=== PATIENT | male | born 1965 | race Caucasian/White ===

== ENCOUNTER 2018-03-30 17:27 | Observation (INO) | payer OTHER ==
[2018-03-30] MEDS ORDERED: ASPIRIN 81 MG CHEWABLE TABLET ONE (18:57)
[2018-03-30] MEDS ORDERED: METOPROLOL TAR 50 MG TAB ONE (18:57)
[2018-03-30] MEDS ORDERED: FAMOTIDINE 20 MG/2 ML VIAL IV ONE (18:58)
[2018-03-30] MEDS ORDERED: ENOXAPARIN 80 MG/0.8 ML SQ ONE (18:58)
--- NOTE | 2018-03-30 18:58 | ER ---
Nurse's Notes [facility] Name: Jacob Liao Age: 52 yrs Sex: Male : 1965 Arrival Date: 03/30/2018 Time: 17:29 Bed 6 Private MD: out of town, doctor Diagnosis: Chest pain, unspecified;Essential (primary) hypertension Presentation: 03/30 17:50 Presenting complaint: Patient states: mid-sternal chest pain radiating to left arm that aa5 began today around 1400. Pt states "I've also been having cramps to my left calf since December". Transition of care: patient was not received from another setting of care. Onset of symptoms was March 30, 2018. Risk Assessment: Do you want to hurt yourself or someone else? Patient reports no desire to harm self or others. Initial Sepsis Screen: Does the patient meet any 2 criteria? No. Patient's initial sepsis screen is negative. Does the patient have a suspected source of infection? No. Patient's initial sepsis screen is negative. Care prior to arrival: None. 17:50 Method Of Arrival: Ambulatory aa5 17:50 Acuity: JOHN 3 aa5 Triage Assessment: 19:02 General: Appears in no apparent distress. uncomfortable, Behavior is calm, cooperative, hj appropriate for age. Pain: Complains of pain in chest Pain radiates to left arm. Cardiovascular: Capillary refill < 3 seconds Patient's skin is warm and dry. Historical: - Allergies: 17:51 No Known Allergies; aa5 - Home Meds: 17:51 None [Active]; aa5 - PMHx: 17:51 Hyperlipidemia; aa5 17:51 Anxiety; aa5 - PSHx: 17:51 Cholecystectomy; aa5 - Immunization history:: Adult Immunizations up to date. - Social history:: Smoking status: Patient/guardian denies using tobacco. - Ebola Screening: : No symptoms or risks identified at this time. - Family history:: not pertinent. Screenin:02 Abuse screen: Denies threats or abuse. Denies injuries from another. Nutritional hj screening: No deficits noted. Tuberculosis screening: No symptoms or risk factors identified. Fall Risk None identified. Assessment: 19:00 General: Appears in no apparent distress. uncomfortable, Behavior is calm, cooperative, hj appropriate for age. Pain: Complains of pain in chest Pain radiates to left arm. Neuro: Level of Consciousness is awake, alert, obeys commands, Oriented to person, place, time, situation, Appropriate for age. Cardiovascular: Capillary refill < 3 seconds Patient's skin is warm and dry. Respiratory: Airway is patent Respiratory effort is even, unlabored, Respiratory pattern is regular, symmetrical. GI: No signs and/or symptoms were reported involving the gastrointestinal system. : No signs and/or symptoms were reported regarding the genitourinary system. EENT: No signs and/or symptoms were reported regarding the EENT system. Derm: No signs and/or symptoms reported regarding the dermatologic system. Musculoskeletal: No signs and/or symptoms reported regarding the musculoskeletal system. 19:02 Pain: Pain began 4 hours ago. hj 19:05 Reassessment: Patient appears in no apparent distress at this time. Patient and/or cc3 family updated on plan of care and expected duration. Pain level reassessed. Patient is alert, oriented x 3, equal unlabored respirations, skin warm/dry/pink. Received this male patient as a case of chest pain; with IV cannula gauge 20 at the right ACV saline locked. 20:06 Reassessment: Patient appears in no apparent distress at this time. Patient and/or cc3 family updated on plan of care and expected duration. Pain level reassessed. Patient is alert, oriented x 3, equal unlabored respirations, skin warm/dry/pink. 21:50 Reassessment: Patient appears in no apparent distress at this time. Patient and/or cc3 family updated on plan of care and expected duration. Pain level reassessed. Patient is alert, oriented x 3, equal unlabored respirations, skin warm/dry/pink. Room available in 215, report handed over to [place] Ernestine Andrade. Patient left ER stable by wheelchair escorted by DIANA Patricia. Vital Signs: 17:52 BP 165 / 100; Pulse 86; Resp 16 S; Temp 99.6(TE); Pulse Ox 99% on R/A; Weight 81.65 kg aa5 (R); Height 5 ft. 11 in. (180.34 cm) (R); Pain 3/10; 19:01 BP 135 / 88; Pulse 68; Resp 18; Pulse Ox 100% on R/A; hj 20:05 BP 146 / 89; Pulse 60; Resp 14 S; Temp 98.9(O); Pulse Ox 98% on R/A; cc3 21:30 BP 137 / 91; Pulse 56; Resp 18 S; Pulse Ox 98% on R/A; cc3 17:52 Body Mass Index 25.10 (81.65 kg, 180.34 cm) aa5 ED Course: 17:29 Patient arrived in ED. mr 17:30 out of town, doctor is Private Physician. mr 17:51 Triage completed. aa5 17:52 Arm band placed on. aa5 18:01 Todd White, RN is Primary Nurse. hj 18:07 EKG done, by technical research scientist. reviewed by Kevin William MD. 3 18:13 Kevin William MD is Attending Physician. 18:30 Inserted saline lock: 22 gauge in right antecubital area, using aseptic technique. hj Blood collected. 18:34 Attending Physician role handed off by Kevin William MD [facility] 18:34 Eliel Monroy MD is Attending Physician. carmelo 18:45 Initial lab(s) drawn, by ky, sent to lab. First set of blood cultures drawn by me, Second set of blood cultures drawn by ky. 18:57 Lincoln Peralta MD is Hospitalizing Provider. carmelo 19:02 Patient has correct armband on for positive identification. Placed in gown. Bed in low hj position. Call light in reach. Side rails up X 1. Adult w/ patient. teletypesetter monitor on. Pulse ox on. NIBP on. 19:03 Patient maintains SpO2 saturation greater than 95% on room air. hj 19:04 XRAY Chest (1 view) In Process Unspecified. EDMS 19:14 US Extremity Venous Unilateral Ltd In Process Unspecified. EDMS 21:55 No provider procedures requiring assistance completed. Patient admitted, IV remains in cc3 place. Administered Medications: 08:36 Drug: Aspirin Chewable Tablet 324 mg Route: PO; hj 19:05 Follow up: Response: No adverse reaction hj 18:36 Drug: Lopressor (metoprolol TARTRATE) 50 mg Route: PO; hj 19:04 Follow up: Response: No adverse reaction; Blood pressure is lowered hj 18:36 Drug: Lovenox 80 mg Route: Sub-Q; Site: abdomen; hj 19:04 Follow up: Response: No adverse reaction hj 18:36 Drug: Pepcid 20 mg Route: IVP; Site: right antecubital; hj 19:04 Follow up: Response: No adverse reaction Outcome: 18:58 Decision to Hospitalize by Provider. carmelo 21:55 Admitted to Med/surg accompanied by tech, via wheelchair, room 215, with chart, Report cc3 called to SADIQ Andrade 21:55 Condition: stable 21:55 Instructed on the need for admit. 22:00 Patient left the ED. cc3 Signatures: Dispatcher [employer] EDEliel Roche MD MD cha Rivera, Mary mr RicoLeila, RN RN aa5 Todd White RN RN hj Starr, Gregory, MD MD gs Montes, Shakira [facility] Justyna Reid cc3
--- NOTE | 2018-03-30 18:59 | EDPHYS ---
Physician Documentation [facility] Name: Jacob Liao Age: 52 yrs Sex: Male : 1965 Arrival Date: 03/30/2018 Time: 17:29 Bed 6 Private MD: out of town, doctor ED Physician Eliel Monroy HPI: 03/30 18:23 This 52 yrs old Male presents to ER via Ambulatory with complaints of Chest gs Pain, Arm Pain. 18:23 The patient or guardian reports chest pain that is located primarily in the substernal gs area. Onset: suddenly, at 14:00. The pain radiates to the left arm. Associated signs and symptoms: Pertinent negatives: diaphoresis, shortness of breath. The chest pain is described as a heaviness. Duration: The patient or guardian reports multiple episodes, that are intermittent, that wax and wane, with no pattern, the episodes last approximately 3 minute(s). Severity of pain: At its worst the pain was moderate in the emergency department the pain has resolved. The patient has experienced similar episodes in the past, a few times. says recent nuc stress echo negative. 18:55 Duration:. carmelo Historical: - Allergies: 17:51 No Known Allergies; aa5 - Home Meds: 17:51 None [Active]; aa5 - PMHx: 17:51 Hyperlipidemia; aa5 17:51 Anxiety; aa5 - PSHx: 17:51 Cholecystectomy; aa5 - Immunization history:: Adult Immunizations up to date. - Social history:: Smoking status: Patient/guardian denies using tobacco. - Ebola Screening: : No symptoms or risks identified at this time. - Family history:: not pertinent. ROS: 18:23 All other systems are negative. gs Exam: 18:23 Head/Face: Normocephalic, atraumatic. Eyes: Pupils equal round and reactive to light, gs extra-ocular motions intact. Lids and lashes normal. Conjunctiva and sclera are non-icteric and not injected. Cornea within normal limits. Periorbital areas with no swelling, redness, or edema. ENT: Nares patent. No nasal discharge, no septal abnormalities noted. Tympanic membranes are normal and external auditory canals are clear. Oropharynx with no redness, swelling, or masses, exudates, or evidence of obstruction, uvula midline. Mucous membranes moist. Neck: Trachea midline, no thyromegaly or masses palpated, and no cervical lymphadenopathy. Supple, full range of motion without nuchal rigidity, or vertebral point tenderness. No Meningismus. Chest/axilla: Normal chest wall appearance and motion. Nontender with no deformity. No lesions are appreciated. Respiratory: Lungs have equal breath sounds bilaterally, clear to auscultation and percussion. No rales, rhonchi or wheezes noted. No increased work of breathing, no retractions or nasal flaring. Abdomen/GI: Soft, non-tender, with normal bowel sounds. No distension or tympany. No guarding or rebound. No evidence of tenderness throughout. Back: No spinal tenderness. No costovertebral tenderness. Full range of motion. Skin: Warm, dry with normal turgor. Normal color with no rashes, no lesions, and no evidence of cellulitis. Neuro: Awake and alert, GCS 15, oriented to person, place, time, and situation. Cranial nerves II-XII grossly intact. Motor strength 5/5 in all extremities. Sensory grossly intact. Cerebellar exam normal. Normal gait. 18:23 Constitutional: The patient appears alert, awake. 18:23 Cardiovascular: Rate: normal, Rhythm: regular, Pulses: no pulse deficits are appreciated, Heart sounds: normal, Edema: is not appreciated. 18:23 ECG was reviewed by the Attending Physician. Vital Signs: 17:52 BP 165 / 100; Pulse 86; Resp 16 S; Temp 99.6(TE); Pulse Ox 99% on R/A; Weight 81.65 kg aa5 (R); Height 5 ft. 11 in. (180.34 cm) (R); Pain 3/10; 19:01 BP 135 / 88; Pulse 68; Resp 18; Pulse Ox 100% on R/A; hj 20:05 BP 146 / 89; Pulse 60; Resp 14 S; Temp 98.9(O); Pulse Ox 98% on R/A; cc3 21:30 BP 137 / 91; Pulse 56; Resp 18 S; Pulse Ox 98% on R/A; cc3 17:52 Body Mass Index 25.10 (81.65 kg, 180.34 cm) aa5 MDM: 18:18 Patient medically screened. 18:23 Differential diagnosis: acute myocardial infarction, chest wall pain, dvt. Data gs reviewed: vital signs, nurses notes. 18:34 Patient medically screened. [facility] 03/30 18:19 Order name: Basic Metabolic Panel; Complete Time: 19:21 03/30 18:19 Order name: CBC with Diff; Complete Time: 19:21 03/30 18:19 Order name: LFT's; Complete Time: 19:21 03/30 18:19 Order name: Magnesium; Complete Time: 19:21 03/30 18:19 Order name: NT PRO-BNP; Complete Time: 19:21 03/30 18:19 Order name: PT-INR; Complete Time: 19:21 03/30 18:19 Order name: Troponin (emerg Dept Use Only); Complete Time: 19:21 03/30 18:19 Order name: XRAY Chest (1 view); Complete Time: 21:18 03/30 18:20 Order name: US Extremity Venous Unilateral Ltd; Complete Time: 21:18 03/30 18:36 Order name: Blood Culture Adult (2) [facility] 03/30 18:10 Order name: EKG Electrocardiogram; Complete Time: 18:36 EDMS 03/30 18:19 Order name: Cardiac monitoring; Complete Time: 18:35 03/30 18:19 Order name: IV Saline Lock; Complete Time: 18:35 03/30 18:19 Order name: Labs collected and sent; Complete Time: 18:36 03/30 18:19 Order name: O2 Per Protocol; Complete Time: 18:36 03/30 18:19 Order name: O2 Sat Monitoring; Complete Time: 18:36 03/30 19:08 Order name: CONS Physician Consult EDMS EC:23 Rate is 75 beats/min. Rhythm is regular. OH interval is normal. T waves are Normal. No gs ST changes noted. Clinical impression: Normal ECG. Interpreted by me. Administered Medications: 08:36 Drug: Aspirin Chewable Tablet 324 mg Route: PO; 19:05 Follow up: Response: No adverse reaction hj 18:36 Drug: Lopressor (metoprolol TARTRATE) 50 mg Route: PO; 19:04 Follow up: Response: No adverse reaction; Blood pressure is lowered hj 18:36 Drug: Lovenox 80 mg Route: Sub-Q; Site: abdomen; hj 19:04 Follow up: Response: No adverse reaction hj 18:36 Drug: Pepcid 20 mg Route: IVP; Site: right antecubital; 19:04 Follow up: Response: No adverse reaction Disposition: 03/30/18 18:58 Hospitalization ordered by Lincoln Peralta for Observation. Preliminary diagnosis are Chest pain, unspecified, Essential (primary) hypertension. - Bed requested for Telemetry/MedSurg (observation). - Status is Observation. cc3 - Condition is Stable. - Problem is new. - Symptoms have improved. UTI on Admission? No Signatures: Dispatcher [employer] EDMS Esha Black RN RN kl Anderson, Corey, MD MD cha Calderon, Audri RN RN aa5 Todd White RN RN hj Starr, Gregory, MD MD gs Cordel, Charlene cc3 Corrections: (The following items were deleted from the chart) 20:31 18:58 Hospitalization Ordered by Lincoln Peralta MD for Observation. Preliminary kl diagnosis is Chest pain, unspecified; Essential (primary) hypertension. Bed requested for Telemetry/MedSurg (observation). Status is Observation. Condition is Stable. Problem is new. Symptoms have improved. UTI on Admission? No. carmelo 22:00 20:31 03/30/2018 18:58 Hospitalization Ordered by Lincoln Peralta MD for Observation. cc3 Preliminary diagnosis is Chest pain, unspecified; Essential (primary) hypertension. Bed requested for Telemetry/MedSurg (observation). Status is Observation. Condition is Stable. Problem is new. Symptoms have improved. UTI on Admission? No. kl
[2018-03-30 19:04] LABS: Absolute Lymphocytes (CBC) 1.6 K/uL (0.7-4.9); Absolute Monocytes 0.4 K/uL (0.1-1.3); Absolute Neutrophil 4.2 K/uL (1.8-8.0); Basophils % 0.4 % (0-1.3); Eosinophils % 0.7 % (0-4.4); Hematocrit 42.3 % (39.6-49.0); Lymphocytes % 25.8 % (15.3-44.8); MCV 96.9 fL (80-100); MPV 7.3 fL (7.6-11.3); Monocytes % 5.7 % (3.3-12.3); RBC Red Blood Cell Count 4.36 M/uL (4.33-5.43)
[2018-03-30 19:08] LABS: Protime INR 1.04
[2018-03-30 19:19] LABS: ALT/SGPT 31 U/L (12-78); AST/SGOT 19 U/L (15-37); Alkaline Phosphatase 56 U/L (45-117); BUN Blood Urea Nitrogen 13 mg/dL (7-18); Bicarbonate 27 mmol/L (21-32); Bilirubin Direct 0.2 mg/dL (0-0.2); Bilirubin Total 0.8 mg/dL (0.2-1.0); Glucose Level 102 mg/dL (74-106); Magnesium 2.1 mg/dL (1.8-2.4); NT PRO-BNP 27 pg/mL (<125); Potassium 3.7 mmol/L (3.5-5.1); Protein, Total 7.5 g/dL (6.4-8.2); Sodium Level 141 mmol/L (136-145); Troponin (Emerg Dept Use Only) < 0.02 ng/mL (0.0-0.045)
--- NOTE | 2018-03-30 19:21 | RAD REPORT ---
EXAM DESCRIPTION: US - Extremity Venous Uni Ltd - 03/30/2018 7:14 pm CLINICAL HISTORY: Leg pain and swelling COMPARISON: None. TECHNIQUE: Real-time sonographic evaluation of the left lower extremity deep venous system was perfo rmed. FINDINGS: Normal compressibility, flow augmentation, phasic flow and spontaneous flow are identified in the left lower extremity common femoral, superficial femoral, popliteal and posterior tibial vein s. No intraluminal filling defects seen. IMPRESSION: No DVT in the left lower extremity.
--- NOTE | 2018-03-30 20:19 | RAD REPORT ---
EXAM DESCRIPTION: RAD - Chest Single View - 03/30/2018 7:04 pm CLINICAL HISTORY: CHEST PAIN COMPARISON: CR; Chest 12/26/2016 TECHNIQUE: AP portable chest image was obtained 1901 hours . FINDINGS: Lungs are clear. Heart and vasculature are normal. No measurable pleural effusion and no p neumothorax. No acute bony abnormality seen. No acute aortic findings suspected. IMPRESSION: No acute cardiopulmonary process. No significant change from comparison.
[2018-03-30] MEDS ORDERED: ACETAMINOPHEN 500 MG TAB PO PRN (20:55)
[2018-03-30] MEDS ORDERED: ALPRAZOLAM 0.25 MG TABLET PO PRN (20:55)
[2018-03-30] MEDS ORDERED: MORPHINE 4 MG/ML SYR IV PRN (20:55)
[2018-03-30 22:03] VITALS: BMI 25.2
[2018-03-30] MEDS: METOPROLOL TAR 50 MG TAB PO SCH (22:50)
[2018-03-31 05:50] LABS: Absolute Lymphocytes (CBC) 3.2 K/uL (0.7-4.9); Absolute Monocytes 0.5 K/uL (0.1-1.3); Absolute Neutrophil 2.6 K/uL (1.8-8.0); Basophils % 0.4 % (0-1.3); Hematocrit 41.2 % (39.6-49.0); Lymphocytes % 49.2 % (15.3-44.8); MCV 97.5 fL (80-100); MPV 7.5 fL (7.6-11.3); Monocytes % 8.1 % (3.3-12.3); RBC Red Blood Cell Count 4.23 M/uL (4.33-5.43)
[2018-03-31 05:56] LABS: BUN Blood Urea Nitrogen 14 mg/dL (7-18); Bicarbonate 30 mmol/L (21-32); Glucose Level 84 mg/dL (74-106); HDL Cholesterol 56 mg/dL (40-60); LDL Cholesterol, Calculated 147 (<130); Potassium 4.1 mmol/L (3.5-5.1); Sodium Level 141 mmol/L (136-145); Troponin I < 0.02 ng/mL (0.0-0.045)
[2018-03-31 06:07] LABS: Urine Appearance CLEAR; Urine Bilirubin NEGATIVE (NEG); Urine Blood NEGATIVE (NEG); Urine Color YELLOW; Urine Glucose NEGATIVE (NEG); Urine Protein NEGATIVE (NEG); Urine Urobilinogen 0.2 mg/dL (0.2-1.0)
[2018-03-31 06:12] LABS: Urine Microscopic Reflex NO UMIC
--- NOTE | 2018-03-31 06:23 | P.HP ---
Certification for Inpatient Patient admitted to: Observation With expected LOS: <2 Midnights Patient will require the following post-hospital care: None Practitioner: I am a practitioner with admitting privileges, knowledge of patient current condition, hospital course, and medical plan of care. Services: Services provided to patient in accordance with Admission requirements found in Title 42 Section 412.3 of the Code of Federal Regulations Patient History Date of Service: 03/30/18 Reason for admission: CP r/o ACS vs. Anxiety disorder History of Present Illness: Patient is a 52-year-old gentleman who came into the hospital with chest discomfort. Patient has a history of dyslipidemia as well as a strong family history. He has had significant workup about a year and a half ago. At that time his workup was completely unremarkable. He was diagnose with anxiety disorder. He has been following up with his family doctor in [place] & he was diagnosed with Latonya's thyroiditis. Patient does significant research in to his medical conditions and also feels he has other issues that may be contributing to his medical diseases. He has had multiple testing performed including substantial mineral and nutritional labs, as well as multiple inflammatory markers performed. He also is not certain if he wants to get any kind of nuclear medicine testing as he feels like there are other testing that are better for diagnosing his questionable cardiac disease. He follows up with her flatwork folder, Dr. Montelongo. Will Consult Cardiology and will also get further testing with an echocardiogram for now. Await Cardiology recommendations prior to any further diagnostic testing. Allergies No Known Allergies Allergy (Verified 03/30/18 22:42) Home Medications: NK [No Home Meds] 03/30/18 - Past Medical/Surgical History Has patient received pneumonia vaccine in the past: No Diabetic: No -: Hyperliperdema -: Overweight -: Allergic rhinitis -: Anxiety disorder -: Latonya's thyroiditis -: Low testosterone level -: Cholecystectomy Psychosocial/ Personal History: . - Family History Father Family History: Reviewed- Non-Contributory - Social History Smoking Status: Never smoker Alcohol use: No CD- Drugs: No Caffeine use: Yes Place of Residence: Home Review of Systems 10-point ROS is otherwise unremarkable Physical Examination - Vital Signs Temperature: 97.8 F Blood Pressure: 127/82 Pulse: 56 Respirations: 18 Pulse Ox (%): 98 - Physical Exam General: Alert, In no apparent distress, Oriented x3 HEENT: Atraumatic, PERRLA, Mucous membr. moist/pink, EOMI, Sclerae nonicteric Neck: Supple, 2+ carotid pulse no bruit, No LAD, Without JVD or thyroid abnormality Respiratory: Clear to auscultation bilaterally, Normal air movement Cardiovascular: Regular rate/rhythm, Normal S1 S2 Gastrointestinal: Normal bowel sounds, Soft and benign, Non-distended Musculoskeletal: No clubbing, No swelling, No tenderness Integumentary: No rashes Neurological: Normal speech, Normal strength at 5/5 x4 extr, Cranial nerves 3- 12 intact, Normal affect Lymphatics: No axilla or inguinal lymphadenopathy - Studies Laboratory Data (last 24 hrs) 03/30/18 18:45: PT 12.3, INR 1.04 03/30/18 18:45: WBC 6.3, Hgb 14.8, Hct 42.3, Plt Count 176 03/30/18 18:45: Sodium 141, Potassium 3.7, BUN 13, Creatinine 1.20, Glucose 102 , Magnesium 2.1, Total Bilirubin 0.8, AST 19, ALT 31, Alkaline Phosphatase 56 Assessment & Plan - Problems (Diagnosis) (1) Chest pain, rule out acute myocardial infarction Current Visit: Yes Status: Acute (2) Anxiety disorder Current Visit: Yes Status: Acute (3) Dyslipidemia Current Visit: Yes Status: Acute (4) Latonya's thyroiditis Current Visit: Yes Status: Acute - Plan 1. Serial troponins and EKG 2. Cardiology consultation 3. Echocardiogram pending 4. Anti-platelet therapy, anti coagulation, beta-kanchan, statin, and O2 as needed 5. IV morphine for pain 6. Anxiolytic Discharge Plan: Home Plan to discharge in: 24 Hours - Advance Directives Does patient have a Living Will: Yes Does patient have a Durable POA for Healthcare: Yes - Code Status/Comfort Care Code Status Assessed: Yes Code Status: Full Code Critical Care: No Time Spent Managing PTS Care (In Minutes): 50
--- NOTE | 2018-03-31 07:34 | EKG ---
Test Date: 2018-03-30 Test Time: 17:59:35 Farm Management Agent: SERAFIN MEASUREMENT RESULTS: Intervals: Rate: 75 DE: 124 QRSD: 94 QT: 380 QTc: 424 [place]: P: 57 DE: 124 QRS: 64 T: 47 INTERPRETIVE STATEMENTS: Normal sinus rhythm Normal ECG Compared to ECG 12/26/2016 22:44:19 Sinus bradycardia no longer present Electronically Signed On 03-31-18 07:33:59 CDT by Eulalio Montelongo
[2018-03-31] MEDS ORDERED: PNEUMOCOCCAL VACCINE 0.5 ML IMVAC ONE (08:00)
[2018-03-31] MEDS ORDERED: ASPIRIN EC 81 MG TAB PO SCH (09:00)
[2018-03-31] MEDS ORDERED: LISINOPRIL 10 MG TAB PO SCH (09:00)
[2018-03-31] MEDS: METOPROLOL TAR 50 MG TAB PO SCH (09:00)
[2018-03-31] MEDS ORDERED: ENOXAPARIN 40 MG/0.4 ML SQ SCH (09:00)
[2018-03-31] MEDS ORDERED: HEPA 1000U/500MLS 2,000 UNIT/1,000 ML BAG IV ONE (09:24)
[2018-03-31] MEDS ORDERED: MIDAZOLAM HCL 2 MG/2 ML INJ ONE (09:24)
[2018-03-31] MEDS ORDERED: FENTANYL CITR 100 MCG/2 ML ONE (09:24)
[2018-03-31] MEDS ORDERED: NITROGLYCERIN/D5W 25 MG/250 ML BTL IV ONE (09:25)
[2018-03-31] MEDS ORDERED: NA CHLORIDE 0.9% 0 ML ONE (09:25)
[2018-03-31] MEDS ORDERED: NITROGLYCERIN 100 MCG/ML SYR (for cath lab use only) IV ONE (09:25)
[2018-03-31] MEDS ORDERED: NICARDIPINE HCL 25 MG/10 ML IV ONE (09:25)
[2018-03-31] MEDS ORDERED: LIDOCAINE 1% MPF 30 ML VIAL ONE (09:25)
[2018-03-31] MEDS ORDERED: ATROPINE SULF 1 MG/10 ML SYR IV ONE (09:25)
[2018-03-31] MEDS ORDERED: HEPARIN 5000 UNIT/ML 1 ML VIAL ONE (09:26)
--- NOTE | 2018-03-31 09:37 | P.DS ---
Admission Date: 03/30/18 Discharge Date: 03/31/18 Primary Care Provider: Dr. Flaherty([place], [place]); Cardiology-Dr. Montelongo Disposition: ROUTINE DISCHARGE Discharge Condition: GOOD Reason for Admission: CP r/o ACS vs. Anxiety disorder Consultations: Cardiology-Dr. Montelongo Procedures: Venous Doppler lower extremity: No DVT identified. Chest X-ray: Unremarkable. 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 Patient was admitted for further evaluation. Hospital Course: Patient presented with chest pain. Patient had atypical presentation. Patient also found to have elevated blood pressure. Patient was admitted for further evaluation and treatment. Cardiology was consulted. Patient declined having a nuclear stress test. Cardiology recommended that the patient be discharge and set up for heart catheterization as an outpatient. Patient has agreed. BP stable at this time. Recommend to continue with aspirin 81 mg daily. Recommendation follow up with cardiology within 1-2 weeks to set up heart catheterization. Patient was found to have elevated blood pressure. He reports that he has white coat syndrome. Recommendation is to monitor blood pressures closely. If his blood pressure remains above 150/90 consistently then the patient will likely require medication. This will need to be further addressed by his PCP and Cardiology. Patient has refused medication for blood pressure at this time. Patient has hyperlipidemia. LDL 147. Recommendation was to start medication for cholesterol. Patient declined starting any medication. He reports that he will continue with diet and lifestyle modification. Recommendation to recheck lipid panel in 4-6 weeks to further address. Patient has anxiety disorder. Patient will follow up with his PCP to further address and evaluate. Previous x-rays reviewed from 2014. Patient has moderate spondylosis of the L4- L5 region. Patient has been having some back pain. He has seen a chiropractor for this issue. Recommendation to consider MRI of the lumbar spine to further evaluate and address. This can be done with the help of his PCP. Previous CT scan done 2015 showed fatty liver. Education on fatty liver will be provided. This can be further addressed by his PCP. Patient with history of Latonya thyroiditis. Previous thyroid ultrasound done December 2017 showed a small vague right thyroid nodule. No calcifications were identified. Recommendations for the patient to follow up with his PCP to further monitor and address. Vital Signs/Physical Exam: Temp Pulse Resp BP Pulse Ox 98.8 F 54 16 131/75 97 03/31/18 08:00 03/31/18 08:00 03/31/18 08:00 03/31/18 08:00 03/31/18 08:00 General: Alert, In no apparent distress, Oriented x3, Cooperative HEENT: Atraumatic, Mucous membr. moist/pink Neck: Supple, No Thyromegaly Respiratory: Clear to auscultation bilaterally, Normal air movement Cardiovascular: Normal pulses, Regular rate/rhythm Gastrointestinal: Normal bowel sounds, Soft and benign, Non-distended, No tenderness, No masses, No rebound, No guarding Musculoskeletal: No erythema, No tenderness, No warmth Integumentary: No tenderness/swelling, No erythema, No warmth, No cyanosis Neurological: Normal speech, Normal strength at 5/5 x4 extr, Normal tone, Normal affect Laboratory Data at Discharge: WBC 6.5 K/uL (4.3-10.9) 03/31/18 04:34 Hgb 14.4 g/dL (13.6-17.9) 03/31/18 04:34 Hct 41.2 % (39.6-49.0) 03/31/18 04:34 Plt Count 173 K/uL (152-406) 03/31/18 04:34 PT 12.3 SECONDS (9.5-12.5) 03/30/18 18:45 INR 1.04 03/30/18 18:45 Sodium 141 mmol/L (136-145) 03/31/18 04:34 Potassium 4.1 mmol/L (3.5-5.1) 03/31/18 04:34 BUN 14 mg/dL (7-18) 03/31/18 04:34 Creatinine 1.10 mg/dL (0.55-1.3) 03/31/18 04:34 Glucose 84 mg/dL (74-106) 03/31/18 04:34 Magnesium 2.1 mg/dL (1.8-2.4) 03/30/18 18:45 Total Bilirubin 0.8 mg/dL (0.2-1.0) 03/30/18 18:45 AST 19 U/L (15-37) 03/30/18 18:45 ALT 31 U/L (12-78) 03/30/18 18:45 Alkaline Phosphatase 56 U/L (45-117) 03/30/18 18:45 Troponin I < 0.02 ng/mL (0.0-0.045) 03/31/18 04:34 Triglycerides Cancelled 03/31/18 06:00 Cholesterol Cancelled 03/31/18 06:00 HDL Cholesterol Cancelled 03/31/18 06:00 Cholesterol/HDL Ratio Cancelled 03/31/18 06:00 Home Medications: Aspirin [Aspirin EC 81 MG] 81 mg PO DAILY #90 tablet. 03/31/18 New Medications: Aspirin [Aspirin EC 81 MG] 81 mg PO DAILY #90 tablet. Patient Discharge Instructions: 1. Patient will need a follow up his PCP in 1 week to follow up this hospitalization. 2. Patient presented with chest pain. Patient had atypical presentation. Patient also found to have elevated blood pressure. Patient was admitted for further evaluation and treatment. Cardiology was consulted. Patient declined having a nuclear stress test. Cardiology recommended that the patient be discharge and set up for heart catheterization as an outpatient. Patient has agreed. BP stable at this time. Recommend to continue with aspirin 81 mg daily. Recommendation follow up with cardiology within 1-2 weeks to set up heart catheterization. 3. Patient was found to have elevated blood pressure. He reports that he has white coat syndrome. Recommendation is to monitor blood pressures closely. If his blood pressure remains above 150/90 consistently then the patient will likely require medication. This will need to be further addressed by his PCP and Cardiology. Patient has refused medication for blood pressure at this time. 4. Patient has hyperlipidemia. LDL 147. Recommendation was to start medication for cholesterol. Patient declined starting any medication. He reports that he will continue with diet and lifestyle modification. Recommendation to recheck lipid panel in 4-6 weeks to further address. 5. Patient has anxiety disorder. Patient will follow up with his PCP to further address and evaluate. 6. Previous x-rays reviewed from 2014. Patient has moderate spondylosis of the L4- L5 region. Patient has been having some back pain. He has seen a chiropractor for this issue. Recommendation to consider MRI of the lumbar spine to further evaluate and address. This can be done with the help of his PCP. 7. Previous CT scan done 2015 showed fatty liver. Education on fatty liver will be provided. This can be further addressed by his PCP. 8. Patient with history of Latonya thyroiditis. Previous thyroid ultrasound done December 2017 showed a small vague right thyroid nodule. No calcifications were identified. Recommendations for the patient to follow up with his PCP to further monitor and address. Diet: AHA Activity: Ad ena Time spent managing pt's care (in minutes): 55
[2018-03-31] MEDS ORDERED: NA CHLORIDE 0.9% 500 ML ONE (10:26)
--- NOTE | 2018-03-31 12:02 | OP ---
Surgeon: Eulalio Montelongo MD Procedures: Left heart catheterization, coronary. Left ventricular angiography. Findings: The patient has normal coronary arteries. Normal pressures. Normal left ventricular ejec tion fraction, and he is believed to have chest pain from musculoskeletal causes, noncardiac. Procedure In Detail: The patient gave us informed consent. He was brought to the cardiac labeling strategist i n a fasting state sedated with Versed and fentanyl, titrated to an adequate level of sedation. He wa s then prepared and draped in the usual sterile fashion. Right radial approach was used. We anesthe tized the skin over the right radial artery with 1 cc of 1% lidocaine. We entered the artery using a 21-gauge needle, cannulated the artery with a 0.021 inch diameter guidewire then used that to insert a 6-[employer] radial sheath. The sheath was flushed. A radial cocktail was given. We advanced a TIG catheter to the ascending aorta using fluoroscopy and a Glidewire with a short radius J-tip. We then used a TIG catheter to angiogram left ventricle, left coronary, right coronary. At the end o f the procedure, the wire and catheter were withdrawn. The catheter was drawn over a wire. The watkins th was removed, and the arteriotomy closed with a TR band. There were no complications from the proc edure. Estimated Blood Loss: 5 cc. Pharmacy Manager: Mingo Daniels. JOS/MU Voice ID: [id number] Report ID: [id number]
--- NOTE | 2018-03-31 12:11 | EKG ---
Test Date: 2018-03-31 Test Time: 08:35:57 Earth Moving Machine Operator: JEANIE MEASUREMENT RESULTS: Intervals: Rate: 57 PA: 144 QRSD: 96 QT: 414 QTc: 402 [place]: P: 63 PA: 144 QRS: 70 T: 54 INTERPRETIVE STATEMENTS: Sinus bradycardia Otherwise normal ECG Compared to ECG 03/30/2018 17:59:35 Sinus rhythm no longer present Electronically Signed On 03-31-18 12:10:42 CDT by Eulalio Montelongo
[2018-03-31 12:30] VITALS: TEMP 98.2
[2018-03-31 12:31] VITALS: O2SAT 99
[2018-03-31 12:48] VITALS: BP 121/74
--- NOTE | 2018-03-31 14:24 | CON ---
CARDIOLOGY CONSULT History Of Present Illness: Mr. Liao is having his 4th or 5th presentation for chest pain. He has come to my office from other hospitals. In the past, he has had all noninvasive workups that have al l been normal. Mr. Liao would seem to be an unlikely patient to have CAD, but he is very concerned that he may have it. He gets chest pain often. He reads a lot about heart disease and all health is sues. He is very concerned about his health. He does weigh more than the average person to research the things. At the same time, he is a very unlikely person to ever take a medication. He is leery of taking any medications; even though he is a little bit hypertensive, he refuses to take blood pres sure medicine. His blood pressure here in the hospital right now is 131/75; when he presented, it wa s up. He has been here in the hospital. He has had a chest x-ray, EKG, enzymes that are normal, and a study of his leg veins looking for blood clots, and it shows no evidence of deep vein thrombosis. Mr. Liao does not use tobacco, alcohol, or illegal drugs. Allergies: HE REPORTS NO ALLERGIES. Physical Examination: Vital Signs: 5 feet 11 inches, 181 pounds. HEENT: Normal. Lungs: Clear. Cardiac exam: Normal. Carotids: No bruit. Extremities: Normal. No cyanosis, clubbing, or edema. Impression: Mr. Liao probably does not have coronary artery disease based on his previous test, but he continues to have chest pain, and I have recommended to him that the diagnostic test that would m gaetano us the most sure about his heart would be the most likely to relieve some of his anxiety is a hea rt catheterization. He has also considered CIMT testing and coronary calcium scores, both of those o f course give risks of coronary artery disease but do not actually say whether you have coronary shannon ry disease; I explained that to him. I recommended a cardiac cath to him. I asked him to contemplat e it for a week, but after 15 minutes, he is asking to do it while he is here in the hospital. So, m y recommendation is that we do a cardiac cath to definitively diagnose whether he has coronary artery disease or not, and hopefully either be able to treat a problem that he has that is previously undia gnosed or give him reassurance. TE Voice ID: [id number] Report ID: [id number]
== END 2018-03-31 14:24 | disposition home or self-care (01) ==
LOC: ER 17:27 → ERHOLD 18:59 → 2ND 21:15
PROVIDERS: ADMIT Hospitalist; ATTEND Hospitalist
DX: R07.89 Other chest pain (principal); R03.0 Elevated blood-pressure reading, without diagnosis of hypertension; E78.5 Hyperlipidemia, unspecified; F41.9 Anxiety disorder, unspecified; E06.3 Autoimmune thyroiditis; M47.896 Other spondylosis, lumbar region
CPT/HCPCS: 36415; 71045; 80048; 80061; 80076; 81003; 83735; 83880; 84484; 85025; 85610; 87040; 93005; 93458; 93971; 96372; 96374; 99285; C1893; G0378; J0583; J1644; J1650; J2250; J3010

== ENCOUNTER 2018-08-15 12:23 | Emergency (ER) | payer OTHER ==
[2018-08-15] MEDS ORDERED: LIDOCAINE 1% 20 ML MDV ONE (13:41)
[2018-08-15] MEDS ORDERED: TETANUS & DIPHTHERIA TOX,ADULT 0.5 ML VIAL ONE (13:41)
--- NOTE | 2018-08-15 14:31 | RAD REPORT ---
EXAM DESCRIPTION: RAD - Hand Right 3 View - 08/15/2018 2:15 pm CLINICAL HISTORY: Hand pain, puncture wound to the palm of the hand COMPARISON: None. FINDINGS: No fracture is identified. There is no dislocation or periosteal reaction noted. Remodeli ng changes are present from a remote distal fifth metacarpal fracture. No air or foreign body in the soft tissues. IMPRESSION: Negative right hand examination.
--- NOTE | 2018-08-15 14:56 | EDPHYS ---
Physician Documentation [facility] Name: Jacob Liao Age: 53 yrs Sex: Male : 1965 Arrival Date: 08/15/2018 Time: 12:27 Bed 24 Private MD: out of town, doctor ED Physician Eliel Monroy HPI: 08/15 13:15 This 53 yrs old Male presents to ER via Ambulatory with complaints of kb Laceration To Hand. 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 The injury was accidental. The laceration(s) is(are) located on the palm of right hand. Onset: The symptoms/episode began/occurred just prior to arrival. Associated signs and symptoms: The patient has no apparent associated signs or symptoms. The patient has not experienced similar symptoms in the past. The patient has not recently seen a physician. Historical: - Allergies: 12:34 No Known Allergies; hb - PMHx: 12:34 Anxiety; Hyperlipidemia; hb - PSHx: 12:34 Cholecystectomy; hb - Immunization history:: Adult Immunizations up to date. - Social history:: Smoking status: Patient/guardian denies using tobacco. - Ebola Screening: : Patient negative for fever greater than or equal to 101.5 degrees Fahrenheit, and additional compatible Ebola Virus Disease symptoms Patient denies exposure to infectious person Patient denies travel to an Ebola-affected area in the 21 days before illness onset No symptoms or risks identified at this time. ROS: 13:12 Constitutional: Negative for fever, chills, and weight loss, Cardiovascular: Negative kb for chest pain, palpitations, and edema, Respiratory: Negative for shortness of breath, cough, wheezing, and pleuritic chest pain, Abdomen/GI: Negative for abdominal pain, nausea, vomiting, diarrhea, and constipation, Neuro: Negative for headache, weakness, numbness, tingling, and seizure. 13:12 MS/extremity: Positive for injury or acute deformity, laceration, pain, of the palm of right hand. 13:12 Skin: Positive for laceration(s), of the palm of right hand. Exam: 13:14 Constitutional: This is a well developed, well nourished patient who is awake, alert, kb and in no acute distress. Head/Face: Normocephalic, atraumatic. Chest/axilla: Normal chest wall appearance and motion. Nontender with no deformity. No lesions are appreciated. Cardiovascular: Regular rate and rhythm with a normal S1 and S2. No gallops, murmurs, or rubs. Normal PMI, no JVD. No pulse deficits. Respiratory: Lungs have equal breath sounds bilaterally, clear to auscultation and percussion. No rales, rhonchi or wheezes noted. No increased work of breathing, no retractions or nasal flaring. Abdomen/GI: Soft, non-tender, with normal bowel sounds. No distension or tympany. No guarding or rebound. No evidence of tenderness throughout. MS/ Extremity: Pulses equal, no cyanosis. Neurovascular intact. Full, normal range of motion. Neuro: Awake and alert, GCS 15, oriented to person, place, time, and situation. Cranial nerves II-XII grossly intact. Motor strength 5/5 in all extremities. Sensory grossly intact. Cerebellar exam normal. Normal gait. 13:14 Skin: injury, laceration(s), the wound is approximately 4 cm(s), of the palm of right hand, that can be described as clean, no foreign body, irregular, with mild bleeding, cresent shaped. Vital Signs: 12:47 BP 139 / 89; Pulse 72; Resp 17; Temp 97.1; Pulse Ox 98% ; Pain 6/10; la1 Laceration: 14:54 Wound Repair of 4cm ( 1.6in ) subcutaneous laceration to palm of right hand. kb Irregularly shaped.. Skin/tissue flap noted.. Distal neuro/vascular/tendon intact. Anesthesia: Wound infiltrated with 4 mls of 1% lidocaine. Wound prep: Extensive cleansing with betadine by me, Wound irrigation with saline by me. Skin closed with 9 5-0 Prolene using interrupted sutures and sterile technique. Dressed with Neosporin, 4x4's. Patient tolerated well. MDM: 12:46 Patient medically screened. kb 13:13 Data reviewed: vital signs, nurses notes. Data interpreted: Pulse oximetry: on room air kb is 98 %. Interpretation: normal. 14:55 Counseling: I had a detailed discussion with the patient and/or guardian regarding: the kb historical points, exam findings, and any diagnostic results supporting the discharge/admit diagnosis, radiology results, the need for outpatient follow up, a family practitioner, to return to the emergency department if symptoms worsen or persist or if there are any questions or concerns that arise at home. 08/15 13:12 Order name: Hand Right 3 View XRAY; Complete Time: 14:54 kb 08/15 12:49 Order name: Prolene, Sutures; Complete Time: 13:37 kb 08/15 12:49 Order name: Dressing - Wound; Complete Time: 14:42 kb 08/15 12:49 Order name: Gloves, Sterile; Complete Time: 13:37 kb 08/15 12:49 Order name: Setup Suture Tray; Complete Time: 13:37 kb 08/15 12:49 Order name: Wound Care: soak hand to remove home bandage please ; Complete Time: 13:37 kb Administered Medications: 13:37 Drug: Tetanus-Diphtheria Toxoid Adult 0.5 ml {Retention Manager: Voxli. Exp: 07/11/2020. Lot #: [id number]. } Route: IM; Site: right deltoid; 14:43 Follow up: Response: No adverse reaction la 14:43 Drug: Lidocaine (1 %) 1 vials Volume: 20 ml; [facility] Disposition: 08/15/18 14:55 Discharged to Home. Impression: Laceration without foreign body of right hand. - Condition is Stable. - Discharge Instructions: Laceration Care, Adult, [id number]. - Prescriptions for Tramadol 50 mg Oral Tablet - take 1 tablet by ORAL route every 8 hours as needed; 12 tablet. - Medication Reconciliation Form, Thank You Letter, Antibiotic Education, Prescription Opioid Use form. - Follow up: Emergency Department; When: As needed; Reason: Worsening of condition. Follow up: Private Physician; When: 2 - 3 days; Reason: Recheck today's complaints, Continuance of care, Re-evaluation by your physician. Addendum: 08/17/2018 07:40 Co-signature as Attending Physician, Eliel Monroy MD I agree with the assessment and c duron plan of care. Signatures: Dispatcher [employer] Kay Navas, VIRTUAL CUSTOMER ASSISTANT-C SPARKLE-Eliel Hampton MD MD cha Attema, Lee RN RN la1 Beatrice Clemons RN RN Corrections: (The following items were deleted from the chart) 08/15 15:13 14:55 08/15/2018 14:55 Discharged to Home. Impression: Laceration without foreign body la1 of right hand. Condition is Stable. Forms are Medication Reconciliation Form, Thank You Letter, Antibiotic Education, Prescription Opioid Use. Follow up: Emergency Department; When: As needed; Reason: Worsening of condition. Follow up: Private Physician; When: 2 - 3 days; Reason: Recheck today's complaints, Continuance of care, Re-evaluation by your physician. kb
--- NOTE | 2018-08-15 14:56 | ER ---
Nurse's Notes [facility] Name: Jacob Liao Age: 53 yrs Sex: Male : 1965 Arrival Date: 08/15/2018 Time: 12:27 Bed 24 Private MD: out of town, doctor Diagnosis: Laceration without foreign body of right hand Presentation: 08/15 12:34 Presenting complaint: Patient states: Was using a powertool, a puncture wound sustained hb to claire aspect of the R hand. Transition of care: patient was not received from another setting of care. Complicating Factors: The type of wound is a puncture. Onset of symptoms was August 15, 2018. Risk Assessment: Do you want to hurt yourself or someone else? Patient reports no desire to harm self or others. Initial Sepsis Screen: Does the patient meet any 2 criteria? No. Patient's initial sepsis screen is negative. Does the patient have a suspected source of infection? No. Patient's initial sepsis screen is negative. Care prior to arrival: None. 12:34 Method Of Arrival: Ambulatory hb 12:34 Acuity: JOHN 4 hb Historical: - Allergies: 12:34 No Known Allergies; hb - PMHx: 12:34 Anxiety; Hyperlipidemia; hb - PSHx: 12:34 Cholecystectomy; hb - Immunization history:: Adult Immunizations up to date. - Social history:: Smoking status: Patient/guardian denies using tobacco. - Ebola Screening: : Patient negative for fever greater than or equal to 101.5 degrees Fahrenheit, and additional compatible Ebola Virus Disease symptoms Patient denies exposure to infectious person Patient denies travel to an Ebola-affected area in the 21 days before illness onset No symptoms or risks identified at this time. Screenin:02 Abuse screen: Denies threats or abuse. Nutritional screening: No deficits noted. la1 Tuberculosis screening: No symptoms or risk factors identified. Fall Risk None identified. Assessment: 14:00 General: Appears in no apparent distress. Behavior is calm, cooperative. Pain: la1 Complains of pain in palm of right hand. Neuro: Level of Consciousness is awake, alert, obeys commands, Oriented to person, place, time, situation. Cardiovascular: Capillary refill < 3 seconds Patient's skin is warm and dry. Respiratory: Airway is patent Respiratory effort is even, unlabored, Respiratory pattern is regular, symmetrical. GI: No signs and/or symptoms were reported involving the gastrointestinal system. : No signs and/or symptoms were reported regarding the genitourinary system. Musculoskeletal: Circulation, motion, and sensation intact. Capillary refill < 3 seconds. Injury Description: Laceration is clean, 2.6 to 7.5 cm long, not bleeding. 14:55 Reassessment: Patient appears in no apparent distress at this time. No changes from la1 previously documented assessment. Patient and/or family updated on plan of care and expected duration. Pain level reassessed. Patient is alert, oriented x 3, equal unlabored respirations, skin warm/dry/pink. Vital Signs: 12:47 BP 139 / 89; Pulse 72; Resp 17; Temp 97.1; Pulse Ox 98% ; Pain 6/10; la1 ED Course: 12:27 Patient arrived in ED. mr 12:27 out of town, doctor is Private Physician. mr 12:34 Arm band placed on. hb 12:35 Triage completed. hb 12:45 Kay Gibbs F[facility]-C [facility]. kb 12:45 Eliel Monroy MD is Attending Physician. kb 12:59 Lamonte Yung RN is Primary Nurse. la1 13:31 X-ray completed. Portable x-ray completed in exam room. sg4 14:02 Call light in reach. Side rails up X 1. la1 14:15 Hand Right 3 View XRAY In Process Unspecified. EDMS 14:55 Assist provider with laceration repair on palm of right hand that was between 2.6 to la1 7.5 cm using sutures. Set up tray. Performed by Kay AHUMADA Dressed with Luz Maria, Neosporin, Patient tolerated well. 14:56 Patient did not have IV access during this emergency room visit. la1 Administered Medications: 13:37 Drug: Tetanus-Diphtheria Toxoid Adult 0.5 ml {Belt Tender: [employer]. Exp: la1 07/11/2020. Lot #: [id number]. } Route: IM; Site: right deltoid; 14:43 Follow up: Response: No adverse reaction la1 14:43 Drug: Lidocaine (1 %) 1 vials Volume: 20 ml; Route: Infiltration; la1 Outcome: 14:55 Discharge ordered by . kb 14:56 Discharged to home ambulatory. la1 14:56 Condition: stable 14:56 Discharge instructions given to patient, Instructed on discharge instructions, follow up and referral plans. medication usage, Demonstrated understanding of instructions, follow-up care. 15:13 Patient left the ED. la1 Signatures: Dispatcher [employer] EDMS Kay Gibbs, SPARKLE-C SUPERVISOR HEAVY EQUIPMENT-Raman ReederaKassidy Aga, AICHA Aburto RN la1 Beatrice Clemons RN RN hb Garcia, Susana 4
[2018-08-15 15:18] VITALS: BP 139/89; TEMP 97.1; O2SAT 98
== END 2018-08-15 15:13 | disposition home or self-care (01) ==
LOC: ER 12:23
PROC: 0JQK0ZZ Repair Left Hand Subcutaneous Tissue and Fascia, Open Approach (ICD-10-PCS; principal; 2018-08-15)
DX: S61.412A Laceration without foreign body of left hand, initial encounter (principal); W45.8XXA Other foreign body or object entering through skin, initial encounter; W22.8XXA Striking against or struck by other objects, initial encounter; Y93.H3 Activity, building and construction; F41.9 Anxiety disorder, unspecified; E78.5 Hyperlipidemia, unspecified
CPT/HCPCS: 90714; 99283

== ENCOUNTER 2022-09-13 03:59 | Observation (INO) | payer OTHER ==
--- OUTSIDE RECORDS SUMMARY | 2022-09-13 04:04 | XMS REPORT | Continuity of Care Document ---
:1965 Author Organization [facility] t Address [address] [facility] [address] [place] [address] Care Team Providers Name Role Phone ALCARAZNOELLE PANIAGUATATYANA Anderson Primary Care Physician Unavailable Favian Moya MD Attending Clinician Hao Weller MD Attending Clinician [phone] Yolette Wang Attending Clinician Aroldo Allred Attending Clinician KAMARI MANJARREZ Attending Clinician Unavailable ANNIKA RAMIREZ Attending Clinician Unavailable Betito Rasmussen PA-C Attending Clinician Miguel Gillespie MD Attending Clinician Lab, Adc Fam Pob I Attending Clinician Unavailable KYLER BAEZA Attending Clinician Unavailable JAYMIE RUCKER Attending Clinician Unavailable RADIOLOGY Attending Clinician Unavailable JYOTI BOLES Attending Clinician Unavailable RIVAS LIMON Attending Clinician Unavailable RIVAS LIMON Attending Clinician Unavailable Abilio Salmeron Attending Clinician SUJATA VALDIVIA Admitting Clinician Unavailable Payers Payer Name Policy Type Policy Number Effective Date Expiration Date S ourjosh [employer]ET[employer] CHOICE POS [id number] 2018 00:00:00 II Problems Condition Condition Condition Status Onset Resolution Last Treating Co mments Source Name Details Category Date Date Treatment Clinician Date CHEST PAIN CHEST Diagnosis Active 2016-2016-09-23 Memoria PAIN 4-03 16:01:00 l Active 00:00: Brenden 09/23/2016 00 [facility] Hyperchole Hyperchol Problem Active 2022-01-03 Memoria sterolemia esterolemi 01:37:04 l (disorder) a Jerry n (disorder) Active Problem 01/03/2022 [facility] her Neuro Essential Essential Problem Active 2022-01-03 Memoria tremor tremor 01:37:04 l (disorder) (disorder) He rmann Active Problem 01/03/2022 [facility] History of Past Illness Condition Condition Condition Status Onset Resolution Last Treating Co mments Source Name Details Category Date Date Treatment Clinician Date Palpitatio Problem 2016-2016-09-26 2016-09-26 Memoria ns Palpitatio 4-03 03:16:07 03:16:07 l ns 05:00: Shokan 09/23/2016 00 09/26/2016 [facility] Dizziness Dizziness Problem 2016-2016-09-26 2016-09-26 Memoria and and 4-03 03:16:07 03:16:07 l giddiness giddiness 05:00: Herm jemima 09/23/2016 00 09/26/2016 [facility] Allergies, Adverse Reactions, Alerts Allergy Allergy Status Severity Reaction(s) Onset Inactive Treating Comm ents Source Name Type Date Date Clinician NO KNOWN Drug Active Univers ALLERGIE Class ity [facility] No Known No Known Active Memori a Medicati Medicati l on on Brenden pollock s Social History Social Habit Start Date Stop Date Quantity Comments Source Exposure to Not sure [facility] Kian morel of SARS-CoV-2 Medicine (event) Alcohol intake 2020-10-27 2020-10-27 .14 /d [facility] Col lege of 00:00:00 00:00:00 Medicine Tobacco use and 2020-04-04 2020-04-04 Never used [facility] Co llege of exposure 00:00:00 00:00:00 Medicine Alcohol Comment 2020-04-04 2020-04-04 Drink [facility] Co llege of 00:00:00 00:00:00 occasionally; Medicine not every week Sex [birth year] At [birth year] [employer] 00:00:00 00:00:00 Hospital Smoking Status Start Date Stop Date Source Tobacco smoking consumption unknown [facility] Social History [facility] Medications Ordered Filled Start Stop Current Ordering Indication Dosage Frequency Signature Comments Components Source Medication Medication Date Date Medication? Clinician (SIG) Name Name rosuvastati Yes 5 mg = 1 Me moria n 5 mg oral 7-11 tab, PO, l tablet 15:36: Daily, 0 Shokan 00 Refill(s) rosuvastati Yes 5 mg = 1 Me moria n 5 mg oral 7-11 tab, PO, l tablet 15:36: Daily, 0 Brenden 00 Refill(s) rosuvastati Yes 5 mg = 1 Me moria n 5 mg oral 7-11 tab, PO, l tablet 15:36: Daily, 0 Shokan 00 Refill(s) rosuvastati Yes 5 mg = 1 Me moria n 5 mg oral 7-11 tab, PO, l tablet 15:36: Daily, 0 Brenden 00 Refill(s) 24 HR Yes 10 mg = 1 Memoria Alfuzosin 2-18 tab, PO, l hydrochlori 15:34: Daily, # Slivio rmann de 10 MG 00 30 tab, 5 Extended Refill(s), Release Pharmacy: [facility] [id number], 180.34, cm, 05/10/21 15:49: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, Height, 80.455, kg, 05/10/21 15:49: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, Weight 24 HR Yes 10 mg = 1 Memoria Alfuzosin 2-18 tab, PO, l hydrochlori 15:34: Daily, # Silvio rmann de 10 MG 00 30 tab, 5 Extended Refill(s), Release Pharmacy: [facility] [id number], 180.34, cm, 05/10/21 15:49: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, 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, 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, kg, 05/10/21 15:49: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, Weight 24 HR Yes 10 mg = 1 Memoria Alfuzosin 2-18 tab, PO, l hydrochlori 15:34: Daily, # Silvio rmann de 10 MG 00 30 tab, 5 Extended Refill(s), Release Pharmacy: [facility] [id number], 180.34, cm, 05/10/21 15:49: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, Height, 80.455, kg, 05/10/21 15:49: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, Weight 24 HR Yes 10 mg = 1 Memoria Alfuzosin 2-18 tab, PO, l hydrochlori 15:34: Daily, # Silvio rmann de 10 MG 00 30 tab, 5 Extended Refill(s), Release Pharmacy: [facility] [id number], 180.34, cm, 05/10/21 15:49: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 of 00 :00 Medicin e tadalafil 2019-06- No 5mg Take 1 Tab B aylor (CIALIS) 5 0-13 03-04 by mouth [facility] MG tablet 00:00: 00:00 daily. of 00 :00 Medicin e Hydrocortis Yes TAKE 1 [facility] [facility] one 5 MG 9-03 TABLET BY Colleg e TABS 00:00: MOUTH FOUR of 00 TIMES A Medicin DAY e Hydrocortis 2020- No TAKE 1 [place] shima one 5 MG 9-03 03-04 TABLET BY Colle ge TABS 00:00: 00:00 MOUTH FOUR of 00 :00 TIMES A Medicin DAY e Saline No Notes: Memoria Flush 0.9% 4-03 (Same as: l 19:58: BD Brenden 00 Posiflush) Saline No Notes: Memoria Flush 0.9% 4-03 (Same as: l 19:58: BD Brenden 00 Posiflush) Saline No Notes: Memoria Flush 0.9% 4-03 (Same as: l 19:58: BD Brenden 00 Posiflush) Saline No Notes: Memoria Flush 0.9% 4-03 (Same as: l 19:58: BD Brenden 00 Posiflush) Immunizations Ordered Immunization Filled Immunization Date Status Commen ts Source Name Name Tdap 2018-07-20 Completed [facility] 00:00:00 of Medicine Tdap 2018-07-20 Completed [facility] 00:00:00 of Medicine Hep A/Hep B 2010-12-20 Completed [facility] Colleg e 00:00:00 of Medicine Hep A/Hep B 2010-12-20 Completed [facility] Colleg e 00:00:00 of Medicine Hep A/Hep B 2010-07-18 Completed [facility] Colleg e 00:00:00 of Medicine Hep A/Hep B 2010-07-18 [facility] Tdap 2010-06-01 Completed [facility] 00:00:00 of Medicine Tdap 2010-06-01 Completed [facility] 00:00:00 of Medicine Vital Signs Vital Name Observation Time Observation Value Comments Source Systolic blood 2020-10-27 16:19:00 138 mm[Hg] [facility] Medicine Diastolic blood 2020-10-27 16:19:00 91 mm[Hg] [facility] Medicine Heart rate 2020-10-27 16:19:00 70 /min [facility] Body height 2020-10-27 16:19:00 180.3 cm [facility] Body weight 2020-10-27 16:19:00 78.472 kg [facility] BMI 2020-10-27 16:19:00 24.13 kg/m2 [facility] Systolic blood 2020-08-24 22:15:00 130 mm[Hg] [facility] Medicine Diastolic blood 2020-08-24 22:15:00 75 mm[Hg] [facility] Medicine Heart rate 2020-08-24 22:15:00 72 /min [facility] Respiratory rate 2020-08-24 22:15:00 17 /min [facility] Systolic blood 2020-04-04 14:56:00 141 mm[Hg] [facility] Medicine Diastolic blood 2020-04-04 14:56:00 86 mm[Hg] [employer] pressure Medicine Heart rate 2020-04-04 14:56:00 71 /min [facility] Body temperature 2020-04-04 14:56:00 37 Theresa [facility] Body height 2020-04-04 14:56:00 180.3 cm [facility] Body weight 2020-04-04 14:56:00 81.647 kg [facility] BMI 2020-04-04 14:56:00 25.10 kg/m2 [facility] Systolic blood 2020-04-04 14:56:00 141 mm[Hg] [facility] pressure Medicine Diastolic blood 2020-04-04 14:56:00 86 mm[Hg] [facility] Medicine Heart rate 2020-04-04 14:56:00 71 /min [facility] Body temperature 2020-04-04 14:56:00 37 Theresa [facility] Body height 2020-04-04 14:56:00 180.3 cm [facility] ollege [facility] Body weight 2020-04-04 14:56:00 81.647 kg [facility] BMI 2020-04-04 14:56:00 25.10 kg/m2 [facility] Systolic (mm Hg) 2021-12-31 14:22:00 Ihsan rial Brenden Diastolic (mm Hg) 2021-12-31 14:22:00 Mem orial Brenden Weight 2021-12-31 14:22:00 [facility] Shokan Height 2021-05-10 21:49:00 180.34 cm [facility] Brenden Weight 2021-05-10 21:49:00 [facility] Brenden BMI Calculated 2021-05-10 21:49:00 Memori al Shokan Respitory Rate 2016-09-24 00:06:00 Memori al Shokan Heart Rate 2016-09-24 00:06:00 [facility] Brenden Systolic (mm Hg) 2016-09-24 00:06:00 Ihsan rial Shokan Diastolic (mm Hg) 2016-09-24 00:06:00 Mem orial Shokan Respitory Rate 2016-09-23 23:30:00 Memori al Shokan Systolic (mm Hg) 2016-09-23 23:30:00 Ihsan rial Brenden Diastolic (mm Hg) 2016-09-23 23:30:00 Mem oriyana Shokan BMI Calculated 2016-09-23 19:58:00 Marcelaliliana Smith Height 2016-09-23 19:58:00 182.88 cm Anali Gonzalesann Weight 2016-09-23 19:58:00 Anali Brenden Temperature Oral (F) 2016-09-23 19:58:00 97.9 F Anali Shokan Respitory Rate 2016-09-23 19:58:00 Kalyn millan Brenden Systolic (mm Hg) 2016-09-23 19:58:00 Ihsan portillol Shokan Diastolic (mm Hg) 2016-09-23 19:58:00 Mem orial Shokan Heart Rate 2016-09-23 19:58:00 Anali Wilcox Procedures Procedure Date / Time Performing Clinician Source Performed US CAROTID DUPLEX 2022-05-31 17:09:00 [facility] BILATERAL US VASCULAR CHD RISK 2022-05-01 21:35:08 [facility] FACTOR IMT SCREEN Simple uroflowmetry 2021-08-10 15:22:00 Anali Wilcox (UFR) (eg, stop-watch flow rate, mechanical uroflowmeter) Complex uroflowmetry 2021-08-10 15:18:00 Phyllis Wilcox (eg, calibrated electronic equipment) Measurement of 2021-08-10 15:18:00 Anali callahan post-voiding residual urine and/or bladder capacity by ultrasound, non-imaging ESTRADIOL 2020-10-27 17:10:00 Betito Rasmussen [facility] Medicine HEMOGLOBIN AND 2020-10-27 17:10:00 Betito Rasmussen [facility] of HEMATOCRIT, BLOOD Medicine Plan of Care Planned Activity Planned Date Details Comments Source Future Scheduled 2022-08-12 COVID-19 VACCINE (#1) [facility] Test 14:30:09 [code = COVID-19 VACCINE (#1)] Future Scheduled 2022-08-12 Pneumococcal Vaccine: [facility] Test 14:30:09 Pediatrics (0 to 5 Years) and At-Risk Patients (6 to 64 Years) (1 - PCV) [code = Pneumococcal Vaccine: Pediatrics (0 to 5 Years) and At-Risk Patients (6 to 64 Years) (1 - PCV)] Future Scheduled 2022-08-12 Hepatitis C screening [facility] Test 14:30:09 (procedure) [code = 052988259] Future Scheduled 2022-08-12 COLONOSCOPY SCREENING [facility] Test 14:30:09 [code = COLONOSCOPY SCREENING] Future Scheduled 2022-08-12 SHINGLES VACCINES (1 Met [facility] Test 14:30:09 of 2) [code = SHINGLES VACCINES (1 of 2)] Future Scheduled 2022-08-12 INFLUENZA VACCINE Method [facility] Test 14:30:09 [code = INFLUENZA VACCINE] Future Scheduled 2020-11-01 Screening for [facility] Col lege of Test 08:57:06 malignant neoplasm of Medici ne colon (procedure) [code = 479079094] Future Scheduled 2020-11-01 COVID-19 Vaccine (1) [facility] of Test 08:57:06 [code = COVID-19 Medicine Vaccine (1)] Future Scheduled 2020-11-01 ZOSTER VACCINE (1 of [facility] of Test 08:57:06 2) [code = ZOSTER Medicine VACCINE (1 of 2)] Future Scheduled 2020-11-01 FLU VACCINE > 6 MONTHS [facility] of Test 08:57:06 [code = FLU VACCINE > Medici ne 6 MONTHS] Future Scheduled 2020-11-01 TETANUS SHOT (ADULT) [facility] of Test 08:57:06 [code = TETANUS SHOT Medicin e (ADULT)] Future Scheduled COLON CANCER [facility] ege of Test SCREENING: COLONOSCOPY Medic ine [code = COLON CANCER SCREENING: COLONOSCOPY] Future Scheduled TETANUS SHOT (ADULT) [facility] of Test [code = TETANUS SHOT Medicin e (ADULT)] Future Scheduled BMI FOLLOW UP PLAN [facility] of Test [code = BMI FOLLOW UP Medici ne PLAN] Future Scheduled HEPATITIS C SCREENING [facility] of Test [code = HEPATITIS C Medicine SCREENING] Future Scheduled HIV SCREENING [code = Ba [facility] of Test HIV SCREENING] Medicine Future Scheduled ZOSTER VACCINE (1 of [facility] of Test 2) [code = ZOSTER Medicine VACCINE (1 of 2)] Future Scheduled FLU VACCINE > 6 MONTHS [facility] of Test [code = FLU VACCINE > Medici ne 6 MONTHS] Future Scheduled COLON CANCER [facility] ege of Test SCREENING: COLONOSCOPY Medic ine [code = COLON CANCER SCREENING: COLONOSCOPY] Future Scheduled BMI FOLLOW UP PLAN [facility] Test [code = BMI FOLLOW UP Medici ne PLAN] Future Scheduled HEPATITIS C SCREENING [facility] Test [code = HEPATITIS C Medicine SCREENING] Future Scheduled HIV SCREENING [code = Ba [facility] of Test HIV SCREENING] Medicine Future Scheduled ZOSTER VACCINE (1 of [facility] Test 2) [code = ZOSTER Medicine VACCINE (1 of 2)] Future Scheduled FLU VACCINE > 6 MONTHS B [facility] [code = FLU VACCINE > Medici ne 6 MONTHS] Future Scheduled TETANUS SHOT (ADULT) [facility] Test [code = TETANUS SHOT Medicin e (ADULT)] Encounters Start End Encounter Admission Attending Care Care Encounter Source Date/Time Date/Time Type Type Clinicians Facility Department ID 2022-05-31 2022-05-31 [facility] 1.2.840.1 [id number] Methodi 10:33:47 23:59:00 Encounter Favian 53708.1.[address] 3.430.2.7 Hospit a .3.863194 l .8 2022-05-31 2022-05-31 [facility] [id number] [place] 00:00:00 00:00:[address] FAVIAN [address] 2022-05-31 2022-05-31 Travel 1.2.840.1 1.2.065.012 [id number] Methodi 00:00:00 00:00:[address] 3.430.2.7 0.2.7.3.698 [facility] 084.8 l .8 2022-05-22 2022-05-22 Transcribe Moya 1.2.840.1 [id number] Methodi 00:00:00 00:00:00 Orders Favian [address]87.1.[address] 3.430.2.7 Hospit a .3.338413 l .8 2022-05-01 2022-05-01 [facility] 1.2.840.1 [id number] Methodi 15:00:11 23:59:00 Encounter Favian 30291.1.[address] 3.430.2.7 Hospit a .3.340207 l .8 2022-05-01 2022-05-01 Outpatient LOWELL, [facility] [id number] [place] 00:00:00 00:00:[address] FAV[address] 2022-05-01 2022-05-01 Travel 1.2.840.1 1.2.474.338 [id number] Methodi 00:00:00 00:00:[address] 3.430.2.7 0.2.7.3.698 Ho spita .3.671299 084.8 l .8 2022-04-24 2022-04-24 Travel 1.2.840.1 1.2.229.199 [id number] Methodi 00:00:00 00:00:[address] 3.430.2.7 0.2.7.3.698 Ho spita .3.483329 084.8 l .8 2022-04-24 2022-04-24 Transcribe Moya, 1.2.840.1 [id number] Methodi 00:00:00 00:00:00 Orders Favian [address]138.1.[address] 3.430.2.7 Hospit a .3.051450 l .8 2022-03-05 2022-03-05 [facility], 1.2.840.1 [id number] Methodi 19:22:14 23:59:00 Encounter Ladan 07480.1.[address] g Homero 3.430.2.7 Hospit a .3.525700 l .8 2022-03-05 2022-03-05 Outpatient [facility] [id number] [place] 00:00:00 00:00:00 LADAN [address] 2022-03-05 2022-03-05 Travel 1.2.840.1 1.2.354.868 [id number] Methodi 00:00:00 00:00:[address] 3.430.2.7 0.2.7.3.698 Ho spita .3.354939 084.8 l .8 2022-02-15 2022-02-15 Transcribe Weller, 1.2.840.1 [id number] Methodi 00:00:00 00:00:00 Orders Dionne-Alex 12342.1.[address] g Homero 3.430.2.7 Hospit a .3.613035 l .8 2022-02-15 2022-02-15 Travel 1.2.840.1 1.2.842.575 [id number] [id number] Methodi 00:00:00 00:00:[address] 3.430.2.7 0.2.7.3.698 Ho spita .3.116297 084.8 l .8 2021-12-31 2022-01-01 Outpatient nullFlavo MNA [id number] Memoria 14:30:00 04:59:59 r Neurosurger 05 l y [facility] 2021-12-31 2022-01-01 Outpatient nullFlavo MNA [id number] Memoria 14:30:00 04:59:59 r Neurosurger 05 l y [facility] 2021-12-31 2021-12-31 Outpatient Felipe MHMISCHER MHMISCHER [id number] 09:30:00 23:59:59 Yolette Sissy Barreto 2021-12-31 2021-12-31 Outpatient MHIE MHIE [id number] Memoria 09:30:00 09:30:00 05 tracy Brenden 2021-10-18 2021-10-20 Phone nullFlavo MNA [id number] Memoria 17:55:02 04:59:59 Message r Neurosurger 00 l luisa [facility] 2021-10-18 2021-10-20 Phone nullFlavo MNA [id number] Memoria 17:55:02 04:59:59 Message r Neurosurger 00 l y [facility] 2021-10-18 2021-10-19 Outpatient MHMISCHER MHMISCHER [id number] 12:55:02 23:59:59 00 2021-09-21 2021-09-21 Ambulatory nullFlavo MHMG [id number] Memoria 18:30:00 18:30:00 Pre-Reg r Urology 04 l Jonah Ledesma [facility] [place] 2021-09-21 2021-09-21 [place] [id number] Memoria 18:30:00 18:30:00 Pre-Reg r Urology 04 l Jonah Callie [facility] 2021-09-21 2021-09-21 Outpatient IE JOCY [id number] Memoria 13:30:00 13:30:00 04 tracy Wilcox 2021-09-21 2021-09-21 [facility] [id number] 13:30:00 13:30:00 Aroldo 04 Porfirio 2021-08-31 2021-08-31 Outpatient [id number] [place] 00:00:00 00:00:00 KAMRAI Carmona i 2021-08-10 2021-08-11 [place] [id number] Memoria 15:15:00 05:59:59 r Urology 03 l Jonah Ledesma [facility] [place] 2021-08-10 2021-08-11 [place] [id number] Memoria 15:15:00 05:59:59 r Urology 03 l Jonah Gonzalesa [facility] [place] 2021-08-10 2021-08-11 [place] [id number] Memoria 15:00:00 05:59:59 r Urology 02 l Jonah Callie [facility] [place] 2021-08-10 2021-08-11 [place] [id number] Memoria 15:00:00 05:59:59 r Urology 02 l Jonah Callie [facility] [place] 2021-08-10 2021-08-10 [facility] Brig[facility] [id number] 09:15:00 23:59:59 Aroldo 03 Porfirio 2021-08-10 2021-08-10 Out[facility] Birgida[facility] [id number] 09:00:00 23:59:59 Aroldo 02 Porfirio 2021-08-10 2021-08-10 Outpatient IE IE [id number] Memoria 09:15:00 09:15:00 03 tracy Wilcox 2021-08-10 2021-08-10 Outpatient MHIE IE [id number] Memoria 09:00:00 09:00:00 02 tracy Wilcox 2021-07-30 2021-07-30 Outpatient [facility] [id number] [place] 00:00:00 00:00:[address] 2021-05-10 2021-05-11 [place] [id number] Memoria 21:15:00 05:59:59 r Urology 01 l Jonah Ledesma [facility] [place] 2021-05-10 2021-05-11 [place] [id number] Memoria 21:15:00 05:59:59 r Urology 01 l Jonah Gonzalesa [facility] [place] 2021-05-10 2021-05-10 Outpatient Brigida [facility] [id number] 15:15:00 23:59:59 Aroldo Porfirio 2021-05-10 2021-05-10 [place] [id number] Memoria 21:15:00 21:15:00 Pre-Reg r Urology 00 l Jonah Ledesma [facility] [place] 2021-05-10 2021-05-10 [place] [id number] Memoria 21:15:00 21:15:00 Pre-Reg r Urology 00 l Jonah Ledesma [facility] [place] 2021-05-10 2021-05-10 Outpatient MHIE IE [id number] Memoria 15:15:00 15:15:00 tracy Wilcox 2021-05-10 2021-05-10 Outpatient MHIE IE [id number] Memoria 15:15:00 15:15:00 00 Shokan 2021-05-10 2021-05-10 Outpatient Brigida [facility] [id number] 15:15:00 15:15:00 Aroldo [facility] 2020-10-27 2020-10-27 Office MARV Rasmussen 1.2.840.[id number] [place] [address] 10:44:26 16:31:00 Visit Betito Loftno AMBULATOR 350.1.13.21 College Y 0.2.7.2.686 of [id number] Medi raissa 300 e 2020-08-24 2020-08-24 Office Jose Miguel, MARV 1.2.840.114 [id number] [facility] 15:47:19 15:57:19 Visit Miguel AMBULATOR 350.1.13.21 College Y 0.2.7.2.686 of [id number] Medi raissa 300 e 2020-04-04 2020-04-04 Office Jose Miguel, MARV 1.2.840.114 [id number] 09:20:35 09:30:35 Visit Miguel AMBULATOR 350.1.13.21 Y 0.2.7.2.686 [id number] 2020-04-04 2020-04-04 Office Jose Miguel, MARV 1.2.840.114 [id number] [facility] 09:20:35 09:30:35 Visit Miguel AMBULATOR 350.1.13.21 College Y 0.2.7.2.686 of [id number] [facility] raissa 300 e 2020-03-15 2020-03-15 Laboratory Lab, [facility] 1.2.840.114 [id number] 13:12:15 13:32:15 Only Fam Pob I Health 350.1.13.10 [place] 4.2.7.2.686 Professio [id number] nal [facility] Office Building One 2020-03-15 2020-03-15 Outpatient R [facility] [id number] Univers 13:20:00 13:20[facility] 2019-12-22 2019-12-24 Laboratory Lab, [facility] 1.2.840.114 [id number] 09:33:27 09:19:46 Only Fam Pob I Health 350.1.13.10 [place] 4.2.7.2.686 Professio [id number] nal 044 Office [address] 2019-12-22 2019-12-22 Outpatient R ARYAN [facility] [id number] Univers 09:40:00 09:40:00 [facility] 2019-10-12 2019-10-12 Outpatient R ALKA [facility] [id number] Univers 08:20:00 08:20:00 , JAYMIE it [facility] 2019-07-30 2019-07-30 Outpatient R RADIOLOGY [facility] [id number] Univers 08:41:51 09:19:00 [facility] 2019-04-15 2019-04-15 Outpatient R [facility] [id number] Univers 12:00:00 12:00:00 [facility] 2019-03-12 2019-03-12 Outpatient R RAMANA, [facility] [id number] Univers 14:00:00 14:28:03 SENDIL [facility] 2019-03-08 2019-03-08 Outpatient R RIVAS LIMON [facility] [id number] Univers 14:20:00 15:30:54 RIVAS LIMON [facility] 2016-09-23 2016-09-24 Emergency [facility] [id number] Memoria 19:55:00 02:42:00 r Shokan 00 [facility] 2016-09-23 2016-09-24 Emergency nullFlavo [facility] [id number] Memoria 19:55:00 02:42:00 r Shokan 00 [facility] 2016-09-23 2016-09-23 Outpatient Faviola, [facility] [id number] 14:55:00 21:42:00 Abilio Mayito 00 Results Test Description Test Time Test Comments Results Result Comments Source ESTRADIOL 2020-10-28 08:44:35 Test Item Value Reference Range Interpretation Comme nts ESTRADIOL LEVEL (test code 21.3 PG/ML See_Comment Note: Values in the range of = 2243-4) 17-25 PG/ML may demonstrate increased impre cision. Clinical correlation is recommended. Unless Otherwis e Indicated, All Testing Perform ed At: Clinical Pathology [facility], [address] [place] [address] Billing Control Clerk: Gurmeet Farr M.D. CLIA Number [id number] [employer] Accreditation N o. [id number] [Automated mess age] The system which generated this result transmitted ref erence range: <=60.7. The ref erence range was not used to int erpret this result as normal/abnor mal. [facility] WomenHEMO[facility] AND HEMATOCRIT, [id number] 07:25:41 Test Item Value Reference Range Interpretation Comments HEMOGLOBIN (test code See_Comment [Auto mated message] The = 718-7) system which ge nerated this result tra nsmitted reference range : 13.5 - 17.0 G/DL. The reference range was not u sed to interpret this result as normal/abnormal . HEMATOCRIT (test code 42.9 % 40.0-51.0 Unles s Otherwise = 79104-7) Indicated, All Testing Performed At: C linical Pathology [facility], [address] [place] [id number] Laborator y Director: Gurmeet Farr M.D. [place] Number [id number] [employer] Accreditation [place]. [id number] [facility] WomenRalamkvrPGHOZHNLRTDE7071-91-45 23:58:00 Test Item Value Reference Range Interpretation Comments B/C Ratio (test code = B/C Ratio) 7 6-25 [facility] HospitalRzfaqenMYITALGVTQMR4572-67-00 23:58:00 Test Item Value Reference Range Interpretation Comments Globulin (test code = Globulin) 3.7 2.7-4.2 [facility] HospitalXqgoquiJTFAXFLXIMBJ5185-29-25 23:58:00 Test Item Value Reference Range Interpretation Comments A/G Ratio (test code = A/G Ratio) 1.1 0.7-1.6 [facility] HospitalIsbcpclOBFGTZFYPXFJ3419-79-23 23:58:00 Test Item Value Reference Range Interpretation Comments eGFR (test code = eGFR) 67 [facility] CenterIuaxkxaRFODFDVAXU4419-36-75 23:58:00 Test Item Value Reference Range Interpretation Comments Segs (test code = Segs) 65.9 45.0-75.0 [facility] CenterMbojuveWNQVXWJNYT4017-52-28 23:58:00 Test Item Value Reference Range Interpretation Comments Monocytes # (test code 0.3 See_Comment [Aut omated message] The = Monocytes #) system which generated this result tra nsmitted reference range : <=0.8. The reference r gita was not used to int erpret this result as normal/abnormal . [facility] CenterGiitpxoBIYLJTLDTX9025-04-47 23:58:00 Test Item Value Reference Range Interpretation Comments Eosinophils # (test code 0.1 See_Comment [A utomated message] The = Eosinophils #) system whic h generated this result tra nsmitted reference range : <=0.5. The reference r gita was not used to int erpret this result as normal/abnormal . [facility] CenterOfnuqrhZGBZQROCOW3073-02-43 23:58:00 Test Item Value Reference Range Interpretation Comments Lymphocytes # (test code = Lymphocytes 2.4 1.0-5.5 #) [facility] CenterDvficjtUMGGVOMTYC8821-66-43 23:58:00 Test Item Value Reference Range Interpretation Comments Basophils (test code = 0.5 See_Comment [Aut omated message] The Basophils) system which ge nerated this result tra nsmitted reference range : <=1.0. The reference r gita was not used to int erpret this result as normal/abnormal . [facility] CenterYnuywaoCNKBCELSRA6904-68-11 23:58:00 Test Item Value Reference Range Interpretation Comments Segs-Bands # (test code = Segs-Bands #) 5.6 1.5-8.1 [facility] CenterGpuvlbiSNKXSWHNDW7449-89-19 23:58:00 Test Item Value Reference Range Interpretation Comments Monocytes (test code = Monocytes) 4.1 2.0-12.0 [facility] CenterOmxqlzfQKKNAHFULA1126-41-31 23:58:00 Test Item Value Reference Range Interpretation Comments Eosinophils (test code = 0.8 See_Comment [A utomated message] The Eosinophils) system which ge nerated this result tra nsmitted reference range : <=4.0. The reference r gita was not used to int erpret this result as normal/abnormal . [facility] CenterZzwpembOVKROVECRA1999-96-40 23:58:00 Test Item Value Reference Range Interpretation Comments Lymphocytes (test code = Lymphocytes) 28.7 20.0-40.0 [facility] CenterDzxnfpjJZQZKHMCMU8517-03-82 23:58:00 Test Item Value Reference Range Interpretation Comments PT (test code = PT) 12.7 s 12.0-14.7 [place] [address]-04-03 23:58:00 Test Item Value Reference Range Interpretation Comments INR (test code = INR) 0.93 0.85-1.17 [facility] CenterPhkhvvwOHHVOPJXMI2224-96-60 23:58:00 Test Item Value Reference Range Interpretation Comments PTT (test code = PTT) 27.2 s 22.9-35.8 [facility] CenterImtfotfCANHUPLHTO5977-01-99 23:58:00 Test Item Value Reference Range Interpretation Comments RDW (test code = RDW) 12.5 11.5-14.5 [facility]HrmtzkcSOPCFQGWQB0243-86-93 23:58:00 Test Item Value Reference Range Interpretation Comments Platelet (test code = Platelet) 218 133-450 [facility] HospitalWggznnhBGVTUSQTLW0838-12-24 23:58:00 Test Item Value Reference Range Interpretation Comments MPV (test code = MPV) 6.6 7.4-10.4 [facility] HospitalZzjxmqjHSGTKHTJSS6287-16-54 23:58:00 Test Item Value Reference Range Interpretation Comments MCV (test code = MCV) 94.3 80.0-94.0 [facility] CampusGgaedlaSTCHQEIWUN6548-62-34 23:58:00 Test Item Value Reference Range Interpretation Comments MCH (test code = MCH) 32.4 pg 27.0-31.0 [facility] HospitalSplcppnBYMRZGPBCW2217-53-75 23:58:00 Test Item Value Reference Range Interpretation Comments MCHC (test code = MCHC) 34.4 32.0-36.0 [facility]stBymxjbdVOVXDDAKZS8153-38-72 23:58:00 Test Item Value Reference Range Interpretation Comments Hgb (test code = Hgb) 15.6 14.0-18.0 [facility] CampusArelkihUCKYZJQGHE3513-79-95 23:58:00 Test Item Value Reference Range Interpretation Comments Hct (test code = Hct) 45.5 42.0-54.0 [facility] CampusQwqhmvvZKAPXLEQHX8926-49-18 23:58:00 Test Item Value Reference Range Interpretation Comments RBC (test code = RBC) 4.82 4.70-6.10 [facility] CampusUqannttLNEOIPYTMK8634-30-61 23:58:00 Test Item Value Reference Range Interpretation Comments WBC (test code = WBC) 8.5 3.7-10.4 [facility] CampusNuka IndstriesQADTPUB2116-53-73 23:58:00 Test Item Value Reference Range Interpretation Comments CK MB Index (test no gt See_Comment [Automate d message] The code = CK MB Index) system w [facility] generated this result transmit devon reference range : <=2.5. The reference range was not used to interpr et this result as helga l/abnormal. [facility]stEmefcy IDDLFKP3508-08-35 23:58:00 Test Item Value Reference Range Interpretation Comments CK MB (test code = CK MB) no gt 0.5-3.6 [facility] HillcrestannCARDIAC IBJHJOC6048-11-54 23:58:00 Test Item Value Reference Range Interpretation Comments Total CK (test code = Total CK) 87 12-191 [facility] CampusCARSafeShot TechnologiesAC OWDZYRT7006-77-88 23:58:00 Test Item Value Reference Range Interpretation Comments Troponin-I (test code no gt See_Comment [Auto mated message] The = Troponin-I) system which g enerated this result transmit devon reference range : <=0.40. The reference r gita was not used to interpr et this result as helga l/abnormal. [facility]stJjmzgqcRKSAYMJNYPJA3492-46-83 23:58:00 Test Item Value Reference Range Interpretation Comments Potassium Lvl (test code = Potassium 3.7 3.5-5.1 Lvl) [facility]RcxdnsaHRRAVWRUGEQG5494-66-17 23:58:00 Test Item Value Reference Range Interpretation Comments Chloride Lvl (test code = Chloride Lvl) 102 95-109 [facility]stYyyjwfkPDLBYRJLEYDL6111-33-36 23:58:00 Test Item Value Reference Range Interpretation Comments Calcium Lvl (test code = Calcium Lvl) 8.8 8.5-10.5 [facility]stAbcgcpuXEKXOKCVMWHE6288-40-57 23:58:00 Test Item Value Reference Range Interpretation Comments Albumin Lvl (test code = Albumin Lvl) 3.9 3.5-5.0 [facility] HillcrestLdduwzxGGNQBEYIEWXU8448-84-67 23:58:00 Test Item Value Reference Range Interpretation Comments Sodium Lvl (test code = Sodium Lvl) 139 135-145 [facility] HospitalPcdfsfeAJRQHABUGBGO6021-35-42 23:58:00 Test Item Value Reference Range Interpretation Comments AST (test code = AST) 27 See_Comment [Auto mated message] The system which ge nerated this result transmit devon reference range : <=37. The reference range was not used to interpr et this result as helga l/abnormal. [facility]crestGckulcfVFZKKMGMUVEV6435-74-89 23:58:00 Test Item Value Reference Range Interpretation Comments Alk Phos (test code = Alk Phos) 68 39-136 [facility] HospitalPnoebwqITWYPSREAERS2421-63-36 23:58:00 Test Item Value Reference Range Interpretation Comments Total Protein (test code = Total 7.6 6.4-8.4 Protein) [facility] HospitalCtuhhupIHOUCZSBQVGQ0410-56-74 23:58:00 Test Item Value Reference Range Interpretation Comments CO2 (test code = CO2) 28 24-32 [facility] HospitalYtxvmhgGROOXXKTPNTO6029-32-35 23:58:00 Test Item Value Reference Range Interpretation Comments ALT (test code = ALT) 48 See_Comment [Auto mated message] The system which ge nerated this result transmit devon reference range : <=65. The reference range was not used to interpr et this result as helga l/abnormal. [facility] HospitalCxjaibeMUPROPHRIBBJ6996-18-85 23:58:00 Test Item Value Reference Range Interpretation Comments Creatinine Lvl (test code = Creatinine 1.23 0.50-1.40 Lvl) [facility] HospitalDtbyafoZUJTGXZBHRTO0810-10-84 23:58:00 Test Item Value Reference Range Interpretation Comments BUN (test code = BUN) 9 7-22 [facility] HospitalFiijonoRILABQNCEGBE3195-18-94 23:58:00 Test Item Value Reference Range Interpretation Comments Glucose Lvl (test code = Glucose Lvl) 136 70-99 [facility] HospitalDyqhuauPNKCRMESPOUI5090-78-49 23:58:00 Test Item Value Reference Range Interpretation Comments Bili Total (test code = Bili Total) 0.6 0.2-1.3 [facility] HospitalUlltjazTCFEPDYFVHVF5912-50-78 23:58:00 Test Item Value Reference Range Interpretation Comments AGAP (test code = AGAP) 12.7 10.0-20.0 [facility] HospitalHvhctwqIUGEJGKRFAXK0025-54-28 23:58:00 Test Item Value Reference Range Interpretation Comments B/C Ratio (test code = B/C Ratio) 7 6-25 [facility] HospitalXvmjhqnBXQRCSMVVJRW2618-29-04 23:58:00 Test Item Value Reference Range Interpretation Comments Globulin (test code = Globulin) 3.7 2.7-4.2 [facility] HospitalOavemtiNSCFRPBRGOWS6581-35-45 23:58:00 Test Item Value Reference Range Interpretation Comments A/G Ratio (test code = A/G Ratio) 1.1 0.7-1.6 [facility] HospitalSuxwhuiASMNXBDJGAEK0168-41-90 23:58:00 Test Item Value Reference Range Interpretation Comments eGFR (test code = eGFR) 67 [facility] CampusCxatchsYSMOTGRCJJ9630-48-04 23:58:00 Test Item Value Reference Range Interpretation Comments Segs (test code = Segs) 65.9 45.0-75.0 [facility] CenterQyjnziqWPPJXMKRWN1007-60-53 23:58:00 Test Item Value Reference Range Interpretation Comments Monocytes # (test code 0.3 See_Comment [Aut omated message] The = Monocytes #) system which generated this result tra nsmitted reference range : <=0.8. The reference r gita was not used to int erpret this result as normal/abnormal . [facility] CenterLsujkwpJYWSTDUSPC4662-60-12 23:58:00 Test Item Value Reference Range Interpretation Comments Eosinophils # (test code 0.1 See_Comment [A utomated message] The = Eosinophils #) system whic h generated this result tra nsmitted reference range : <=0.5. The reference r gita was not used to int erpret this result as normal/abnormal . [facility] CenterVdetnehKINEQEMSKA8763-09-00 23:58:00 Test Item Value Reference Range Interpretation Comments Lymphocytes # (test code = Lymphocytes 2.4 1.0-5.5 #) [facility] CenterMfcjqlbZHWQTPFYDF6367-84-31 23:58:00 Test Item Value Reference Range Interpretation Comments Basophils (test code = 0.5 See_Comment [Aut omated message] The Basophils) system which ge nerated this result tra nsmitted reference range : <=1.0. The reference r gita was not used to int erpret this result as normal/abnormal . [facility] CenterEhhwerkAWVBUDTPOJ5645-39-16 23:58:00 Test Item Value Reference Range Interpretation Comments Segs-Bands # (test code = Segs-Bands #) 5.6 1.5-8.1 [facility] CenterAukpgooZHEOJEECCS8749-10-78 23:58:00 Test Item Value Reference Range Interpretation Comments Monocytes (test code = Monocytes) 4.1 2.0-12.0 [facility] CenterScsmyniNLVHHREOZD7501-28-10 23:58:00 Test Item Value Reference Range Interpretation Comments Eosinophils (test code = 0.8 See_Comment [A utomated message] The Eosinophils) system which ge nerated this result tra nsmitted reference range : <=4.0. The reference r gita was not used to int erpret this result as normal/abnormal . [facility] CenterZzdfbbbSBPGFDKXFZ2032-18-45 23:58:00 Test Item Value Reference Range Interpretation Comments Lymphocytes (test code = Lymphocytes) 28.7 20.0-40.0 [facility] CenterXeocmrhULMCXHBTCO1551-15-78 23:58:00 Test Item Value Reference Range Interpretation Comments PT (test code = PT) 12.7 s 12.0-14.7 [facility] CenterCsixchlNGXMDHGBFD6240-25-21 23:58:00 Test Item Value Reference Range Interpretation Comments INR (test code = INR) 0.93 0.85-1.17 [facility] CenterElnsdofVEFLPWARNI0746-18-90 23:58:00 Test Item Value Reference Range Interpretation Comments PTT (test code = PTT) 27.2 s 22.9-35.8 [facility] CenterHhuxsetNZCSXLWIIC6978-38-27 23:58:00 Test Item Value Reference Range Interpretation Comments RDW (test code = RDW) 12.5 11.5-14.5 [facility] CenterYhkykknNSRVKKFMMC1523-62-78 23:58:00 Test Item Value Reference Range Interpretation Comments Platelet (test code = Platelet) 218 133-450 [facility] CenterLwgfldqJGTCAFGHDF4522-12-88 23:58:00 Test Item Value Reference Range Interpretation Comments MPV (test code = MPV) 6.6 7.4-10.4 [facility] CenterGdgfysuXXTGHXDPPN7592-42-57 23:58:00 Test Item Value Reference Range Interpretation Comments MCV (test code = MCV) 94.3 80.0-94.0 [facility] CenterLqslnhkFQADETBAGC3710-67-29 23:58:00 Test Item Value Reference Range Interpretation Comments MCH (test code = MCH) 32.4 pg 27.0-31.0 [facility] CenterNakffklYPTVRNLCWW5118-64-85 23:58:00 Test Item Value Reference Range Interpretation Comments MCHC (test code = MCHC) 34.4 32.0-36.0 [facility] CenterYhwllseRBOVVTNGVS9841-81-13 23:58:00 Test Item Value Reference Range Interpretation Comments Hgb (test code = Hgb) 15.6 14.0-18.0 [facility] CenterYihayehFYFRFFTJFR0167-74-66 23:58:00 Test Item Value Reference Range Interpretation Comments Hct (test code = Hct) 45.5 42.0-54.0 [facility] CenterIzrftrdLOOWWVCBSS6536-34-16 23:58:00 Test Item Value Reference Range Interpretation Comments RBC (test code = RBC) 4.82 4.70-6.10 [facility] CenterYprsndkOBNQUMEDZA4355-15-43 23:58:00 Test Item Value Reference Range Interpretation Comments WBC (test code = WBC) 8.5 3.7-10.4 [facility]stannCARDIAC DOEOTLZ8100-70-25 23:58:00 Test Item Value Reference Range Interpretation Comments CK MB Index (test no gt See_Comment [Automate d message] The code = CK MB Index) [facility] generated this result transmit devon reference range : <=2.5. The reference range was not used to interpr et this result as helga l/abnormal. [facility] CampusCARDIAC EYEHYEA6642-54-25 23:58:00 Test Item Value Reference Range Interpretation Comments CK MB (test code = CK MB) no gt 0.5-3.6 [facility] CampusCARAC HRBKFRW5399-92-41 23:58:00 Test Item Value Reference Range Interpretation Comments Total CK (test code = Total CK) 87 12-191 [facility] JSPZZEO0959-07-55 23:58:00 Test Item Value Reference Range Interpretation Comments Troponin-I (test code no gt See_Comment [Auto mated message] The = Troponin-I) system which g enerated this result transmit devon reference range : <=0.40. The reference r gita was not used to interpr et this result as helga l/abnormal. [facility]SrgnjkvZGMYVFKHBUXO4542-53-87 23:58:00 Test Item Value Reference Range Interpretation Comments Potassium Lvl (test code = Potassium 3.7 3.5-5.1 Lvl) [facility] HospitalDnuvycySWVENRPTNFAA6477-11-95 23:58:00 Test Item Value Reference Range Interpretation Comments Chloride Lvl (test code = Chloride Lvl) 102 95-109 [facility]fieldLozvfwmDOJCYBYMLRUQ6304-80-84 23:58:00 Test Item Value Reference Range Interpretation Comments Calcium Lvl (test code = Calcium Lvl) 8.8 8.5-10.5 [facility]stGfqnyrcMIXCGVHAWVEM4939-95-20 23:58:00 Test Item Value Reference Range Interpretation Comments Albumin Lvl (test code = Albumin Lvl) 3.9 3.5-5.0 [facility] HospitalDwmhurlRXGIVCGLJYFM6255-12-73 23:58:00 Test Item Value Reference Range Interpretation Comments Sodium Lvl (test code = Sodium Lvl) 139 135-145 [facility] HospitalSdnfefzYJHDHRDVEXWX8496-96-74 23:58:00 Test Item Value Reference Range Interpretation Comments AST (test code = AST) 27 See_Comment [Auto mated message] The system which ge nerated this result transmit devon reference range : <=37. The reference range was not used to interpr et this result as helga l/abnormal. [facility] HospitalZirceqtOCHQAEJNGMDV4122-27-50 23:58:00 Test Item Value Reference Range Interpretation Comments Alk Phos (test code = Alk Phos) 68 39-136 [facility] HospitalNfkxtmjANLZGMYOHPZL0621-82-60 23:58:00 Test Item Value Reference Range Interpretation Comments Total Protein (test code = Total 7.6 6.4-8.4 Protein) [facility] HospitalNiowibyIUAWCJXUQHZH0152-91-38 23:58:00 Test Item Value Reference Range Interpretation Comments CO2 (test code = CO2) 28 24-32 [facility] HospitalVxwjpxrYHGYEQXKNIHX9412-80-49 23:58:00 Test Item Value Reference Range Interpretation Comments ALT (test code = ALT) 48 See_Comment [Auto mated message] The system which ge nerated this result transmit devon reference range : <=65. The reference range was not used to interpr et this result as helga l/abnormal. [facility] HospitalMjffojqQWSYULKMXSCS6971-74-64 23:58:00 Test Item Value Reference Range Interpretation Comments Creatinine Lvl (test code = Creatinine 1.23 0.50-1.40 Lvl) [facility] HospitalYrtwjfbQTBOOUKKEIBQ4971-05-16 23:58:00 Test Item Value Reference Range Interpretation Comments BUN (test code = BUN) 9 7-22 [facility] HospitalOfwfpsbBDXVFDJQTSEL2319-95-55 23:58:00 Test Item Value Reference Range Interpretation Comments Glucose Lvl (test code = Glucose Lvl) 136 70-99 [facility] HospitalLiymklwZTAVEUQPPAXO4413-61-90 23:58:00 Test Item Value Reference Range Interpretation Comments Bili Total (test code = Bili Total) 0.6 0.2-1.3 [facility] HospitalVtldwzkTHOTRITYZGNT1022-59-93 23:58:00 Test Item Value Reference Range Interpretation Comments AGAP (test code = AGAP) 12.7 10.0-20.0 [facility] HospitalVxpmgwhWZZYZFNCLHNL3311-52-88 23:58:00 Test Item Value Reference Range Interpretation Comments B/C Ratio (test code = B/C Ratio) 7 6-25 [facility] HospitalOylxascMIZHJKXGHEPL4283-62-07 23:58:00 Test Item Value Reference Range Interpretation Comments Globulin (test code = Globulin) 3.7 2.7-4.2 [facility] HospitalDyuawvsFDEZZYDYGGIU1426-94-63 23:58:00 Test Item Value Reference Range Interpretation Comments A/G Ratio (test code = A/G Ratio) 1.1 0.7-1.6 [facility] HospitalElsqgaxYLZSEZOHENLE1812-97-95 23:58:00 Test Item Value Reference Range Interpretation Comments eGFR (test code = eGFR) 67 [facility] CenterBqbwznaRSHUMPUYUO8858-77-31 23:58:00 Test Item Value Reference Range Interpretation Comments Segs (test code = Segs) 65.9 45.0-75.0 [facility] CenterNkhvclkKCCKNSPENW9169-76-88 23:58:00 Test Item Value Reference Range Interpretation Comments Monocytes # (test code 0.3 See_Comment [Aut omated message] The = Monocytes #) system which generated this result tra nsmitted reference range : <=0.8. The reference r gita was not used to int erpret this result as normal/abnormal . [facility] CenterSjzduzdPGEFLMZVSP9938-63-85 23:58:00 Test Item Value Reference Range Interpretation Comments Eosinophils # (test code 0.1 See_Comment [A utomated message] The = Eosinophils #) system whic h generated this result tra nsmitted reference range : <=0.5. The reference r gita was not used to int erpret this result as normal/abnormal . [facility] CenterUktvlyaKMKPXSENUP0923-55-48 23:58:00 Test Item Value Reference Range Interpretation Comments Lymphocytes # (test code = Lymphocytes 2.4 1.0-5.5 #) [facility] CenterVbrkwevUNHBFUPCML5009-88-22 23:58:00 Test Item Value Reference Range Interpretation Comments Basophils (test code = 0.5 See_Comment [Aut omated message] The Basophils) system which ge nerated this result tra nsmitted reference range : <=1.0. The reference r gita was not used to int erpret this result as normal/abnormal . [facility] CenterOwvjhftXMVCZBVQTI3316-96-56 23:58:00 Test Item Value Reference Range Interpretation Comments Segs-Bands # (test code = Segs-Bands #) 5.6 1.5-8.1 [facility] CenterNlopfpfKKSFHKDQGU1592-71-72 23:58:00 Test Item Value Reference Range Interpretation Comments Monocytes (test code = Monocytes) 4.1 2.0-12.0 [facility] CenterLlrjyamHIRRXFXZSI5967-45-41 23:58:00 Test Item Value Reference Range Interpretation Comments Eosinophils (test code = 0.8 See_Comment [A utomated message] The Eosinophils) system which ge nerated this result tra nsmitted reference range : <=4.0. The reference r gita was not used to int erpret this result as normal/abnormal . [facility] CenterDlxonanEFPZGWHQWZ8487-99-20 23:58:00 Test Item Value Reference Range Interpretation Comments Lymphocytes (test code = Lymphocytes) 28.7 20.0-40.0 [facility] CenterDwjkchcIWMHIQUUOP6614-14-30 23:58:00 Test Item Value Reference Range Interpretation Comments PT (test code = PT) 12.7 s 12.0-14.7 [facility] CenterWsaymxuZGIDWXEQPU6037-09-15 23:58:00 Test Item Value Reference Range Interpretation Comments INR (test code = INR) 0.93 0.85-1.17 [facility] CenterQekpdisPLKTKIFVCF7643-53-65 23:58:00 Test Item Value Reference Range Interpretation Comments PTT (test code = PTT) 27.2 s 22.9-35.8 [facility] CenterHmxcahaNJZCUSTYHG0549-07-99 23:58:00 Test Item Value Reference Range Interpretation Comments RDW (test code = RDW) 12.5 11.5-14.5 [facility] CenterZzkmndvYFNEHNSQMH6451-43-88 23:58:00 Test Item Value Reference Range Interpretation Comments Platelet (test code = Platelet) 218 133-450 [facility] [facility]FjaytgwIDNKQUPCHW7914-52-97 23:58:00 Test Item Value Reference Range Interpretation Comments MPV (test code = MPV) 6.6 7.4-10.4 [facility] CenterBqegmzzOAGAWZBHJP7504-52-59 23:58:00 Test Item Value Reference Range Interpretation Comments MCV (test code = MCV) 94.3 80.0-94.0 [facility] CenterWrblfykBGCSCMWZVB1003-89-60 23:58:00 Test Item Value Reference Range Interpretation Comments MCH (test code = MCH) 32.4 pg 27.0-31.0 [facility] CenterWwfcfavKRITPLHKQO9202-76-82 23:58:00 Test Item Value Reference Range Interpretation Comments MCHC (test code = MCHC) 34.4 32.0-36.0 [facility]SmifptrEJBSNFICWT6478-85-89 23:58:00 Test Item Value Reference Range Interpretation Comments Hgb (test code = Hgb) 15.6 14.0-18.0 [facility] CenterEsqzfyrEIHRJNAYFK2385-59-95 23:58:00 Test Item Value Reference Range Interpretation Comments Hct (test code = Hct) 45.5 42.0-54.0 [facility] HospitalItcxqomODSPLAHLCC5552-27-66 23:58:00 Test Item Value Reference Range Interpretation Comments RBC (test code = RBC) 4.82 4.70-6.10 [facility] HospitalDlpiugxLTLDPGIBCN4079-10-75 23:58:00 Test Item Value Reference Range Interpretation Comments WBC (test code = WBC) 8.5 3.7-10.4 [facility] CampusNuka IndstriesIXIAGTY4038-74-15 23:58:00 Test Item Value Reference Range Interpretation Comments CK MB Index (test no gt See_Comment [Automate d message] The code = CK MB Index) system w [facility] generated this result transmit devon reference range : <=2.5. The reference range was not used to interpr et this result as helga l/abnormal. [facility]stNeurogesX HGQSFBQ4139-66-40 23:58:00 Test Item Value Reference Range Interpretation Comments CK MB (test code = CK MB) no gt 0.5-3.6 [facility] CampusYozio ZWXHLMG7450-92-37 23:58:00 Test Item Value Reference Range Interpretation Comments Total CK (test code = Total CK) 87 12-191 [facility] CampusNuka IndstriesTYFFWGN0691-37-35 23:58:00 Test Item Value Reference Range Interpretation Comments Troponin-I (test code no gt See_Comment [Auto mated message] The = Troponin-I) system which g enerated this result transmit devon reference range : <=0.40. The reference r gita was not used to interpr et this result as helga l/abnormal. [facility]fieldCrengukAYQGRKSGWTGV9724-13-21 23:58:00 Test Item Value Reference Range Interpretation Comments Potassium Lvl (test code = Potassium 3.7 3.5-5.1 Lvl) [facility]fieldZmpgldgWOIUXGOGIHON5949-39-66 23:58:00 Test Item Value Reference Range Interpretation Comments Chloride Lvl (test code = Chloride Lvl) 102 95-109 [facility] ZusndijWXVNLXPYAXST2435-34-31 23:58:00 Test Item Value Reference Range Interpretation Comments Calcium Lvl (test code = Calcium Lvl) 8.8 8.5-10.5 [facility] SgsizpkZZKYUXOUZVGF6162-93-24 23:58:00 Test Item Value Reference Range Interpretation Comments Albumin Lvl (test code = Albumin Lvl) 3.9 3.5-5.0 [facility] XmivrnvBDNSEUTYSAOO0971-19-34 23:58:00 Test Item Value Reference Range Interpretation Comments Sodium Lvl (test code = Sodium Lvl) 139 135-145 [facility] [employer]AC NWXUPXG3812-05-23 23:58:00 Test Item Value Reference Range Interpretation Comments CK MB Index (test no gt See_Comment [Automate d message] The code = CK MB Index) system w [facility] generated this result transmit devon reference range : <=2.5. The reference range was not used to interpr et this result as helga l/abnormal. [facility] [employer] FRVFAIK5339-19-58 23:58:00 Test Item Value Reference Range Interpretation Comments CK MB (test code = CK MB) no gt 0.5-3.6 [facility] [employer] SRQZQDD6181-24-88 23:58:00 Test Item Value Reference Range Interpretation Comments Total CK (test code = Total CK) 87 12-191 [facility]stEmefcy DBXSPDF0421-99-68 23:58:00 Test Item Value Reference Range Interpretation Comments Troponin-I (test code no gt See_Comment [Auto mated message] The = Troponin-I) system which g enerated this result transmit devon reference range : <=0.40. The reference r gita was not used to interpr et this result as helga l/abnormal. [facility] NzccljeRSXDKZOGOVST5891-66-46 23:58:00 Test Item Value Reference Range Interpretation Comments Potassium Lvl (test code = Potassium 3.7 3.5-5.1 Lvl) [facility]stSxbbgxnKFLMEFKFMTQP2340-19-51 23:58:00 Test Item Value Reference Range Interpretation Comments Chloride Lvl (test code = Chloride Lvl) 102 95-109 [facility] HospitalOexootvHXPRMRZPDMND6486-24-74 23:58:00 Test Item Value Reference Range Interpretation Comments Calcium Lvl (test code = Calcium Lvl) 8.8 8.5-10.5 [facility] HospitalGdqejowCKBKHBFMORBB8516-28-01 23:58:00 Test Item Value Reference Range Interpretation Comments Albumin Lvl (test code = Albumin Lvl) 3.9 3.5-5.0 [facility] HospitalBetmhgcLPIMQATJGEJU3008-67-29 23:58:00 Test Item Value Reference Range Interpretation Comments Sodium Lvl (test code = Sodium Lvl) 139 135-145 [facility] HospitalUiwjjwdUBNQUEUTQKNK3984-48-39 23:58:00 Test Item Value Reference Range Interpretation Comments AST (test code = AST) 27 See_Comment [Auto mated message] The system which ge nerated this result transmit devon reference range : <=37. The reference range was not used to interpr et this result as helga l/abnormal. [facility] HospitalNqdkhakLDICFKKDZFBP1077-94-62 23:58:00 Test Item Value Reference Range Interpretation Comments Alk Phos (test code = Alk Phos) 68 39-136 [facility] HospitalAtognqcPRFCISAAWTBE3721-69-14 23:58:00 Test Item Value Reference Range Interpretation Comments Total Protein (test code = Total 7.6 6.4-8.4 Protein) [facility] HospitalVnskfuiZOESWACKVWQJ7204-67-61 23:58:00 Test Item Value Reference Range Interpretation Comments CO2 (test code = CO2) 28 24-32 [facility] HospitalGirkekvDQXXDWSFAZCB9792-17-51 23:58:00 Test Item Value Reference Range Interpretation Comments ALT (test code = ALT) 48 See_Comment [Auto mated message] The system which ge nerated this result transmit devon reference range : <=65. The reference range was not used to interpr et this result as helga l/abnormal. [facility] HospitalGkngmoaHANBUFUPXQOL1504-27-27 23:58:00 Test Item Value Reference Range Interpretation Comments Creatinine Lvl (test code = Creatinine 1.23 0.50-1.40 Lvl) [facility] HospitalAlrtlgrSZRZYMJAMPSD4495-59-32 23:58:00 Test Item Value Reference Range Interpretation Comments BUN (test code = BUN) 9 7-22 [facility] HospitalZdjrrbwJNSVBITEDDMC2465-04-61 23:58:00 Test Item Value Reference Range Interpretation Comments Glucose Lvl (test code = Glucose Lvl) 136 70-99 [facility] HospitalYjrfuxzFEPQJBBXDZUQ1772-03-19 23:58:00 Test Item Value Reference Range Interpretation Comments Bili Total (test code = Bili Total) 0.6 0.2-1.3 [facility] HospitalKjbfhnqRUQXXCJREJAH9186-05-47 23:58:00 Test Item Value Reference Range Interpretation Comments AGAP (test code = AGAP) 12.7 10.0-20.0 [facility] HospitalQzrybrgYHZYBGVRUNSC9643-64-13 23:58:00 Test Item Value Reference Range Interpretation Comments B/C Ratio (test code = B/C Ratio) 7 6-25 [facility] HospitalGrbznfpVLGDIYIVENVU2437-83-67 23:58:00 Test Item Value Reference Range Interpretation Comments Globulin (test code = Globulin) 3.7 2.7-4.2 [facility] HospitalQtffkwnWRSKKVRBFBKE0502-46-96 23:58:00 Test Item Value Reference Range Interpretation Comments A/G Ratio (test code = A/G Ratio) 1.1 0.7-1.6 [facility] HospitalEvmvhcuUEOVHWUUFNYS6225-95-31 23:58:00 Test Item Value Reference Range Interpretation Comments eGFR (test code = eGFR) 67 [facility] CenterCzhhvmgJMHPYHZUHP9457-61-44 23:58:00 Test Item Value Reference Range Interpretation Comments Segs (test code = Segs) 65.9 45.0-75.0 [facility] CenterGxmongvEPERGHDAFS1403-85-45 23:58:00 Test Item Value Reference Range Interpretation Comments Monocytes # (test code 0.3 See_Comment [Aut omated message] The = Monocytes #) system which generated this result tra nsmitted reference range : <=0.8. The reference r gita was not used to int erpret this result as normal/abnormal . [facility] CenterWgwekaiCIYSYZQUDQ1858-32-13 23:58:00 Test Item Value Reference Range Interpretation Comments Eosinophils # (test code 0.1 See_Comment [A utomated message] The = Eosinophils #) system whic h generated this result tra nsmitted reference range : <=0.5. The reference r gita was not used to int erpret this result as normal/abnormal . [facility] CenterKbcdcmkWMERWBXBOG4827-10-13 23:58:00 Test Item Value Reference Range Interpretation Comments Lymphocytes # (test code = Lymphocytes 2.4 1.0-5.5 #) [facility] CenterRvmmtrhBSYMMOVSBC0551-18-78 23:58:00 Test Item Value Reference Range Interpretation Comments Basophils (test code = 0.5 See_Comment [Aut omated message] The Basophils) system which ge nerated this result tra nsmitted reference range : <=1.0. The reference r gita was not used to int erpret this result as normal/abnormal . [facility] CenterElinateWOYSYYKQGU8559-79-00 23:58:00 Test Item Value Reference Range Interpretation Comments Segs-Bands # (test code = Segs-Bands #) 5.6 1.5-8.1 [facility] CenterNuioyrhTDJCOCWHSB0955-24-49 23:58:00 Test Item Value Reference Range Interpretation Comments Monocytes (test code = Monocytes) 4.1 2.0-12.0 [facility] CenterKrigsxpPJDKXXFXON6817-30-86 23:58:00 Test Item Value Reference Range Interpretation Comments Eosinophils (test code = 0.8 See_Comment [A utomated message] The Eosinophils) system which ge nerated this result tra nsmitted reference range : <=4.0. The reference r gita was not used to int erpret this result as normal/abnormal . [facility] CenterXkhtflsOPNFKRDKSF0632-79-80 23:58:00 Test Item Value Reference Range Interpretation Comments Lymphocytes (test code = Lymphocytes) 28.7 20.0-40.0 [facility] CenterBkjvtgtGUTROMALDM0850-62-97 23:58:00 Test Item Value Reference Range Interpretation Comments PT (test code = PT) 12.7 s 12.0-14.7 [facility] CenterOiscoqxIYNITCWGUT2110-71-69 23:58:00 Test Item Value Reference Range Interpretation Comments INR (test code = INR) 0.93 0.85-1.17 [facility] CenterLmtvbsxZMDGWOJJVO8430-59-44 23:58:00 Test Item Value Reference Range Interpretation Comments PTT (test code = PTT) 27.2 s 22.9-35.8 [facility] CenterEtpbnpgESHUSFGRVG8323-78-49 23:58:00 Test Item Value Reference Range Interpretation Comments RDW (test code = RDW) 12.5 11.5-14.5 [facility] CenterDyjcbkcBXTRCFJVKT7571-59-59 23:58:00 Test Item Value Reference Range Interpretation Comments Platelet (test code = Platelet) 218 133-450 [facility] CenterDclhnsaMBRSIGGVKU1979-57-52 23:58:00 Test Item Value Reference Range Interpretation Comments MPV (test code = MPV) 6.6 7.4-10.4 [facility] CenterHkusouiTRZEWLEXDV9527-33-89 23:58:00 Test Item Value Reference Range Interpretation Comments MCV (test code = MCV) 94.3 80.0-94.0 [facility] CenterXsxqqwlIVVDFPISRW5127-74-44 23:58:00 Test Item Value Reference Range Interpretation Comments MCH (test code = MCH) 32.4 pg 27.0-31.0 [facility] CenterFpdihsuYEOIQSPSLA7697-60-07 23:58:00 Test Item Value Reference Range Interpretation Comments MCHC (test code = MCHC) 34.4 32.0-36.0 [facility] CenterLliqhftQEZDBIJRVB0834-11-36 23:58:00 Test Item Value Reference Range Interpretation Comments Hgb (test code = Hgb) 15.6 14.0-18.0 [facility] CenterEqearlwPNOIIERHRL2104-39-13 23:58:00 Test Item Value Reference Range Interpretation Comments Hct (test code = Hct) 45.5 42.0-54.0 [facility] CenterUdchywhEZDANJTLMU3947-23-69 23:58:00 Test Item Value Reference Range Interpretation Comments RBC (test code = RBC) 4.82 4.70-6.10 [facility] CenterSjuqzhaXAWJYMAUDA3479-62-37 23:58:00 Test Item Value Reference Range Interpretation Comments WBC (test code = WBC) 8.5 3.7-10.4 [facility] HospitalToyabpsANPPAQDSUFFO6808-34-09 23:58:00 Test Item Value Reference Range Interpretation Comments AST (test code = AST) 27 See_Comment [Auto mated message] The system which ge nerated this result transmit devon reference range : <=37. The reference range was not used to interpr et this result as helga l/abnormal. [facility] HospitalXdyeufgIJORXQUVSQPH9742-86-63 23:58:00 Test Item Value Reference Range Interpretation Comments Alk Phos (test code = Alk Phos) 68 39-136 [facility] HospitalAgvaqcvWLGVTMHYCUGX3658-90-13 23:58:00 Test Item Value Reference Range Interpretation Comments Total Protein (test code = Total 7.6 6.4-8.4 Protein) [facility] HospitalHhasdqqWLVQMULWOPWM4291-40-02 23:58:00 Test Item Value Reference Range Interpretation Comments CO2 (test code = CO2) 28 24-32 [facility] HospitalHqxtokfOQLMGPRFMRBG6478-53-84 23:58:00 Test Item Value Reference Range Interpretation Comments ALT (test code = ALT) 48 See_Comment [Auto mated message] The system which ge nerated this result transmit devon reference range : <=65. The reference range was not used to interpr et this result as helga l/abnormal. [facility] HospitalZjfqspmUAFGTBHZCKVH2906-94-76 23:58:00 Test Item Value Reference Range Interpretation Comments Creatinine Lvl (test code = Creatinine 1.23 0.50-1.40 Lvl) [facility] HospitalVcowpweCDBOFBSOLHND7477-35-82 23:58:00 Test Item Value Reference Range Interpretation Comments BUN (test code = BUN) 9 7-22 [facility] HospitalPujoixeFPPIXHUIMIZX7977-93-18 23:58:00 Test Item Value Reference Range Interpretation Comments Glucose Lvl (test code = Glucose Lvl) 136 70-99 [facility] HospitalGpshzpfYBMOLDTWTDOK5371-87-24 23:58:00 Test Item Value Reference Range Interpretation Comments Bili Total (test code = Bili Total) 0.6 0.2-1.3 [facility] HospitalCeluwvjFSHTGPQGECCK5753-16-50 23:58:00 Test Item Value Reference Range Interpretation Comments AGAP (test code = AGAP) 12.7 10.0-20.0 [facility]
[2022-09-13 05:12] LABS: Absolute Lymphocytes (CBC) 1.7 K/uL (0.7-4.9); Hematocrit 39.1 % (39.6-49.0); Lymphocytes % 14.6 % (15.3-44.8); MCV 94.4 fL (80-100); MPV 6.9 fL (7.6-11.3); RBC Red Blood Cell Count 4.15 M/uL (4.33-5.43)
[2022-09-13 05:33] LABS: Albumin 3.2 g/dL (3.4-5.0); Bilirubin Direct 0.2 mg/dL (0-0.2); Bilirubin Total 0.8 mg/dL (0.2-1.0); Potassium 3.6 mEq/L (3.5-5.1); Protein, Total 6.7 g/dL (6.4-8.2)
--- NOTE | 2022-09-13 06:48 | ER ---
Nurse's Notes [facility] Name: Jacob Liao Age: 57 yrs Sex: Male : 1965 Arrival Date: 09/13/2022 Time: 04:09 Bed 6 Private MD: Diagnosis: Pulmonary embolism without acute cor pulmonale Presentation: 09/13 04:37 Chief complaint: Patient states: right lower rib pain began x 2 days prior pain kl worsening cough congestion symptoms since august 30 has appt with PCP today at 3pm. Coronavirus screen: Vaccine status: Patient reports receiving the 2nd dose of the covid vaccine. Ebola Screen: Patient negative for fever greater than or equal to 101.5 degrees Fahrenheit, and additional compatible Ebola Virus Disease symptoms. Initial Sepsis Screen: Does the patient meet any 2 criteria? No. Patient's initial sepsis screen is negative. Does the patient have a suspected source of infection? Yes:. Risk Assessment: Do you want to hurt yourself or someone else? Patient reports no desire to harm self or others. 04:37 Method Of Arrival: Ambulatory kl 04:50 Acuity: JOHN 3 kl Triage Assessment: 04:42 General: Appears uncomfortable, Behavior is calm, cooperative. Pain: Complains of pain kl in right lower rib cage. Historical: - Allergies: 04:43 No Known Allergies; kl - Home Meds: 04:40 atorvastatin oral [Active]; kl - PMHx: 04:40 Hyperlipidemia; Anxiety; kl - PSHx: 04:40 basal cell carcinoma removal x 2; kl - Immunization history:: Adult Immunizations up to date. - Social history:: Smoking status: Patient denies any tobacco usage or history of. - Family history:: not pertinent. - Hospitalizations: : No recent hospitalization is reported. Screenin:10 [facility] ED Fall Risk Assessment (Adult) History of falling in the last 3 months, aa9 including since admission No falls in past 3 months (0 pts) Confusion or Disorientation No (0 pts) Intoxicated or Sedated No (0 pts) Impaired Gait No (0 pts) Mobility Assist Device Used No (0 pt) Altered Elimination No (0 pt) Score/Fall Risk Level 0 - 2 = Low Risk Oriented to surroundings, Maintained a safe environment. Abuse screen: Denies threats or abuse. Denies injuries from another. Nutritional screening: No deficits noted. Tuberculosis screening: No symptoms or risk factors identified. Assessment: 05:08 General: Appears comfortable, slender, well groomed, Behavior is calm, cooperative. aa9 General: pt states,"I started getting sick around August, I was traveling around [place] for the last 2 weeks. Last night it just got worse, but now its feeling better, I took some naproxen before I came in.". Pain: Complains of pain in diaphragm Aggravated by inhaling. Neuro: Level of Consciousness is awake, alert, obeys commands, Oriented to person, place, time, situation. Respiratory: Airway is patent Respiratory effort is even, unlabored. : No signs and/or symptoms were reported regarding the genitourinary system. Derm: Skin is intact, is healthy with good turgor. 06:38 Reassessment: Patient appears in no apparent distress at this time. Maurice MARIA at bedside.aa9 06:49 Reassessment: Patient appears in no apparent distress at this time. Patient is alert, aa9 oriented x 3, equal unlabored respirations, skin warm/dry/pink. pt voiced understanding of plan of care. denies concerns at this time. 07:05 Reassessment: Reassessment: Dr. Peralta at bedside. hb 08:11 Reassessment: Patient appears in no apparent distress at this time. Patient and/or hb family updated on plan of care and expected duration. Pain level reassessed. Patient is alert, oriented x 3, equal unlabored respirations, skin warm/dry/pink. 08:35 Reassessment: Patient is alert, oriented x 3, equal unlabored respirations, skin aa5 warm/dry/pink. Awaiting bed assignment, pt notified of wait time. Pt reports he is comfortable at this time. . 09:26 Reassessment: Patient appears in no apparent distress at this time. No changes from hb previously documented assessment. 09:34 Reassessment: Pt given breakfast tray. aa5 10:05 Reassessment: Patient is alert, oriented x 3, equal unlabored respirations, skin aa5 warm/dry/pink. Vital Signs: 04:37 BP 162 / 94; Pulse 71; Resp 20; Temp 98.9(O); Pulse Ox 96% on R/A; Pain 3/10; kl 05:12 BP 138 / 82; Pulse 68; Resp 16 S; Pulse Ox 98% on R/A; aa9 06:44 Weight 78.93 kg (R); Height 5 ft. 11 in. ; kl 06:46 BP 148 / 84; Pulse 74; Resp 16 S; Pulse Ox 98% on R/A; aa9 09:00 BP 126 / 87; Pulse 64; Resp 15; Pulse Ox 99% ; hb 06:44 Body Mass Index 24.27 (78.93 kg, 180.34 cm) kl 04:37 Pain Scale: Adult kl ED Course: 04:09 Patient arrived in ED. es 04:14 Chris [facility] MD is Attending Physician. rn 04:40 Triage completed. 05:07 Inserted saline lock: 20 gauge in right forearm, using aseptic technique. Blood aa9 collected. 05:07 Patient has correct armband on for positive identification. Bed in low position. Call aa9 light in reach. Pulse ox on. NIBP on. Warm blanket given. 05:57 CT Chest For PE Angio In Process Unspecified. EDMS 06:47 Lincoln Peralta MD is Hospitalizing Provider. rn 10:05 No provider procedures requiring assistance completed. Patient admitted, IV remains in aa5 place. Administered Medications: 06:49 Drug: Enoxaparin Sub-Q 1 mg/kg Route: Sub-Q; Site: right lower abdomen; aa9 Medication: 05:11 VIS not applicable for this client. aa9 Outcome: 06:48 Decision to Hospitalize by Provider. rn 10:05 Admitted to Tele accompanied by tech, via wheelchair, with chart, Report called to aa5 AICHA Penn 10:05 Condition: stable 10:05 Instructed on the need for admit, Demonstrated understanding of instructions. 10:17 Patient left the ED. hb Signatures: Dispatcher [employer] EDMS Esha Black RN RN kl Salyer, Edna es Nieto, Roman, MD MD rn Calderon, Audri, RN RN aa5 Beatrice Clemons RN RN hb Avalos, Aylin, RN RN aa9 Corrections: (The following items were deleted from the chart) 04:50 04:37 Acuity: JOHN 4 kl 07:17 07:17 Reassessment: hb hb
--- NOTE | 2022-09-13 06:48 | EDPHYS ---
Physician Documentation [facility] Name: Jacob Liao Age: 57 yrs Sex: Male : 1965 Arrival Date: 09/13/2022 Time: 04:09 Bed 6 Private MD: ED Physician Chris Richards HPI: 09/13 05:40 This 57 yrs old Male presents to ER via Ambulatory with complaints of Shoulder Pain, rn RIB PAIN, PAIN WHEN INHALE. 05:40 The patient or guardian reports chest pain that is located primarily in the right rn lateral anterior chest. Onset: 3 day(s) ago. The pain radiates to the right shoulder. Associated signs and symptoms: Pertinent positives: cough, Pertinent negatives: abdominal pain, diaphoresis, dizziness, near syncope, palpitations, shortness of breath, syncope, vomiting. The chest pain is described as sharp, stabbing. Duration: The patient or guardian reports multiple episodes, that are intermittent. Modifying factors: The symptoms are alleviated by NSAIDS, the symptoms are aggravated by cough, deep breath. Severity of pain: At its worst the pain was moderate in the emergency department the pain has improved. The patient has not experienced similar symptoms in the past. Reports recent international trip, came back with cough, tested + for COVID, repeat negative after a few days. No hx of dvt/PE. NO trauma. Hurts to take deep breath and cough. Clear sputum. No abd pain. . Historical: - Allergies: 04:43 No Known Allergies; kl - Home Meds: 04:40 atorvastatin oral [Active]; kl - PMHx: 04:40 Hyperlipidemia; Anxiety; kl - PSHx: 04:40 basal cell carcinoma removal x 2; kl - Immunization history:: Adult Immunizations up to date. - Social history:: Smoking status: Patient denies any tobacco usage or history of. - Family history:: not pertinent. - Hospitalizations: : No recent hospitalization is reported. ROS: 05:40 Constitutional: Negative for fever, chills, and weight loss, Eyes: Negative for injury, rn pain, redness, and discharge, Cardiovascular: + chest pain Respiratory: + cough Abdomen/GI: Negative for abdominal pain, nausea, vomiting, diarrhea, and constipation, MS/Extremity: Negative for injury and deformity. Exam: 05:40 Constitutional: This is a well developed, well nourished patient who is awake, alert, rn and in no acute distress. Cardiovascular: Regular rate and rhythm. No pulse deficits. Respiratory: No increased work of breathing, no retractions or nasal flaring. Abdomen/GI: soft, non-tender MS/ Extremity: Pulses equal, no cyanosis. Equal circumference. Neuro: Awake and alert, GCS 15 Vital Signs: 04:37 BP 162 / 94; Pulse 71; Resp 20; Temp 98.9(O); Pulse Ox 96% on R/A; Pain 3/10; kl 05:12 BP 138 / 82; Pulse 68; Resp 16 S; Pulse Ox 98% on R/A; aa9 06:44 Weight 78.93 kg (R); Height 5 ft. 11 in. ; kl 06:46 BP 148 / 84; Pulse 74; Resp 16 S; Pulse Ox 98% on R/A; aa9 09:00 BP 126 / 87; Pulse 64; Resp 15; Pulse Ox 99% ; hb 06:44 Body Mass Index 24.27 (78.93 kg, 180.34 cm) kl 04:37 Pain Scale: Adult kl MDM: 04:14 Patient medically screened. rn 05:44 Differential diagnosis: anxiety, chest wall pain, costochondritis, pleurisy, pneumonia, rn pneumothorax, pulmonary embolus. 06:44 Data reviewed: vital signs, nurses notes, lab test result(s), EKG, radiologic studies, rn CT scan, and as a result, I will admit patient. Consideration of Admission/Observation Patient was admitted/placed on observation. Escalation of care including admission/observation considered. I considered the following discharge prescriptions or medication management in the emergency department Medications were administered in the Emergency Department. See MAR. Independent interpretation of the following test(s) in the Emergency Department CT Scan: My interpretation is CT chest images show wedge infarct and possible inflammation RLL per my interpretation. Discussion of test interpretation with radiology: I had a discussion with radiology regarding a test interpretation. Discussed results with radiologist, they do not see obvious signs of right heart strain, but recommend ECHO given "equivocal findings". . Counseling: I had a detailed discussion with the patient and/or guardian regarding: the historical points, exam findings, and any diagnostic results supporting the discharge/admit diagnosis, lab results, radiology results, the need for further work-up and treatment in the hospital. Response to treatment: the patient's symptoms have mildly improved after treatment, and as a result, I will admit patient. 09/13 04:53 Order name: Basic Metabolic Panel; Complete Time: 05:35 rn 09/13 04:53 Order name: CBC with Diff; Complete Time: 05:35 rn 09/13 04:53 Order name: LFT's; Complete Time: 05:35 rn 09/13 04:53 Order name: NT PRO-BNP; Complete Time: 05:35 rn 09/13 04:53 Order name: Troponin HS; Complete Time: 05:35 rn 09/13 04:53 Order name: CT Chest For PE Angio rn 09/13 07:24 Order name: Echo with Doppler EDMA 09/13 07:24 Order name: Extrem Venous W Compress Gume EDMA 09/13 04:53 Order name: EKG; Complete Time: 04:55 rn 09/13 07:24 Order name: CONS Physician Consult EDMA 09/13 07:24 Order name: Heart Healthy [facility] 09/13 07:59 Order name: Diet Heart Healthy; Complete Time: 08:00 aa5 09/13 04:53 Order name: IV Start; Complete Time: 05:04 rn 09/13 04:53 Order name: Cardiac monitoring; Complete Time: 05:04 rn 09/13 04:53 Order name: EKG - Nurse/Tech; Complete Time: 05:44 rn 09/13 04:53 Order name: Labs collected and sent; Complete Time: 05:04 rn 09/13 04:53 Order name: O2 Per Protocol; Complete Time: 05:04 rn 09/13 04:53 Order name: O2 Sat Monitoring; Complete Time: 05:04 rn Administered Medications: 06:49 Drug: Enoxaparin Sub-Q 1 mg/kg Route: Sub-Q; Site: right lower abdomen; aa9 Disposition Summary: 09/13/22 06:48 Hospitalization Ordered Hospitalization Status: Observation rn Provider: Lincoln Peralta rn Location: Telemetry/MedSurg (observation) rn Condition: Stable rn Problem: new rn Symptoms: have improved rn Bed/Room Type: Standard rn Room Assignment: 414(09/13/22 09:40) dw Diagnosis - Pulmonary embolism without acute cor pulmonale rn Forms: - Medication Reconciliation Form rn - SBAR form rn Signatures: Dispatcher [employer] Esha Garduno, RN Lennie Cruz RN Chris Cavanaugh MD MD rn Avalos, Aylin, RN RN aa9 Corrections: (The following items were deleted from the chart) 09:40 06:48 francheska jerome
[2022-09-13] MEDS ORDERED: ENOXAPARIN 80 MG/0.8 ML SQ ONE (06:52)
[2022-09-13] MEDS ORDERED: MORPHINE 2 MG/ML SYR IV PRN (07:16)
[2022-09-13] MEDS ORDERED: ONDANSETRON 4 MG/2 ML VIAL IV PRN (07:16)
[2022-09-13] MEDS ORDERED: ACETAMINOPHEN 500 MG TAB PO PRN (07:16)
--- NOTE | 2022-09-13 07:26 | P.HP ---
Certification for Inpatient Patient admitted to: Observation With expected LOS: <2 Midnights Patient will require the following post-hospital care: None Practitioner: I am a practitioner with admitting privileges, knowledge of patient current condition, hospital course, and medical plan of care. Services: Services provided to patient in accordance with Admission requirements found in Title 42 Section 412.3 of the Code of Federal Regulations Patient History Date of Service: 09/13/22 Reason for admission: Pulmonary embolism History of Present Illness: Patient is a 57-year-old gentleman who came to the hospital with pain on the right upper quadrant of the abdomen and pleuritic pain. Patient recently flew in from [place]. He was there for 3 weeks. The last week he got COVID-19. When he arrived to our hospital he was little short of breath. He decided to come to the emergency room for further evaluation. In the emergency room he was found to have a pulmonary embolism. Diagnosing right heart strain was equivocal. We will go ahead and admit the patient to the hospital and get an echocardiogram and venous Doppler. Spoke with pulmonary and plan is to start on low-dose Lovenox today and exchange administrator to Eliquis. He can get outpatient testing hypercoagulable work-up if no other studies are diagnostic of etiology of pulmonary embolism. Likely culprit is COVID-19 infection. Allergies No Known Allergies Allergy (Verified 03/30/18 22:42) Home Medications: Aspirin [Aspirin EC 81 MG] 81 mg PO DAILY #90 tablet. 03/31/18 - Past Medical/Surgical History Diabetic: No -: Hyperliperdema -: Overweight -: Allergic rhinitis -: Anxiety disorder -: Latonya's thyroiditis -: Low testosterone level -: Cholecystectomy Psychosocial/ Personal History: . - Family History Father Family History: Reviewed- Non-Contributory - Social History Smoking Status: Never smoker Alcohol use: No CD- Drugs: No Caffeine use: Yes Review of Systems 10-point ROS is otherwise unremarkable Physical Examination - Vital Signs Temperature: 98 F Blood Pressure: 150/80 Pulse: 80 Respirations: 18 Pulse Ox (%): 96 - Physical Exam General: Alert, In no apparent distress, Oriented x3 HEENT: Atraumatic, PERRLA, Mucous membr. moist/pink, EOMI, Sclerae nonicteric Neck: Supple, 2+ carotid pulse no bruit, No LAD, Without JVD or thyroid abnormality Respiratory: Diminished Cardiovascular: Regular rate/rhythm, Normal S1 S2 Gastrointestinal: Normal bowel sounds, Soft and benign, Non-distended, No tenderness, No rebound, No guarding Musculoskeletal: No clubbing, No swelling, No tenderness Integumentary: No rashes Neurological: Normal gait, Normal speech, Normal strength at 5/5 x4 extr, Normal tone, Sensation intact, Cranial nerves 3-12 intact, Normal affect Lymphatics: No axilla or inguinal lymphadenopathy - Studies Laboratory Data (last 24 hrs) 09/13/22 05:05: WBC 11.60 H, Hgb 13.5 L, Hct 39.1 L, Plt Count 149 L 09/13/22 05:05: Sodium 138, Potassium 3.6, BUN 10, Creatinine 1.02, Glucose 113 H, Total Bilirubin 0.8, AST 19, ALT 30, Alkaline Phosphatase 75 Assessment & Plan - Problems (Diagnosis) (1) Pulmonary emboli Current Visit: Yes Status: Acute - Plan Plan: 1. Spoke with pulmonary and plan is to start Lovenox today. In the setting of normal blood pressure and normal oxygenation really do not need to do an echocardiogram. However, patient was told by the emergency room physician that this was going to get done so he is expecting this at this time. We will go ahead and proceed with echocardiogram and venous Doppler. We will have him exchange administrator to Eliquis tomorrow. Possible discharge home tomorrow if his other work-up is unremarkable. Discharge Plan: Home Plan to discharge in: 24 Hours - Advance Directives Does patient have a Living Will: Yes Does patient have a Durable POA for Healthcare: Yes - Code Status/Comfort Care Code Status Assessed: Yes Code Status: Full Code Critical Care: No Time Spent Managing PTS Care (In Minutes): 45
[2022-09-13] MEDS ORDERED: NA CHLORIDE 0.9% 1,000 ML IV SCH (08:00)
--- NOTE | 2022-09-13 08:37 | RAD REPORT ---
EXAM DESCRIPTION: US - Extrem Venous W Compress Gume - 09/13/2022 8:09 am CLINICAL HISTORY: PE Bilateral leg edema and swelling. COMPARISON: Extremity Nonvascular Complete dated 10/27/2018 TECHNIQUE: Real-time sonographic interrogation of the left and right lower extremity deep venous sys tems was performed. FINDINGS: Normal compressibility, flow augmentation, phasic flow and spontaneous flow is identified in both the left and right lower extremity deep venous systems. IMPRESSION: No sonographic evidence of left or right lower extremity deep venous thrombosis.
[2022-09-13] MEDS ORDERED: APIXABAN 5 MG TABLET PO SCH (09:00)
[2022-09-13] MEDS ORDERED: HYDROCODONE/APAP 5/325 MG TAB PO PRN (10:50)
--- NOTE | 2022-09-13 10:51 | P.CNS ---
Date of Consult: 09/13/22 Reason for Consult: Pulmonary emboli Chief Complaint: Pulmonary embolism History of Present Illness: Patient is 57 years of age who recently got COVID became sick while traveling to [place] but tested positive for COVID complaining of cough congestion was primary care physician was treated with steroid today developed intense right-sided pleuritic chest pain [place] any fever chills he retested negative for COVID came into the emergency room was diagnosed with pulmonary embolism prior history of cardiopulmonary disorder Allergies No Known Allergies Allergy (Verified 03/30/18 22:42) Home Medications: Aspirin [Aspirin EC 81 MG] 81 mg PO DAILY #90 tablet. 03/31/18 - Past Medical/Surgical History Diabetic: No -: Hyperliperdema -: Overweight -: Allergic rhinitis -: Anxiety disorder -: Latonya's thyroiditis -: Low testosterone level -: Cholecystectomy Psychosocial/ Personal History: . - Family History Father Family History: Reviewed- Non-Contributory - Social History Smoking Status: Never smoker Alcohol use: No CD- Drugs: No Caffeine use: Yes Review of Systems 10-point ROS is otherwise unremarkable Physical Examination Temp Pulse Resp BP Pulse Ox 98 F 64 15 126/87 96 09/13/22 08:53 09/13/22 09:00 09/13/22 09:00 09/13/22 09:00 09/13/22 08:53 General: Alert, In no apparent distress, Oriented x3 Neck: Supple Respiratory: Clear to auscultation bilaterally Cardiovascular: No edema, Normal pulses, Normal S1 S2 Gastrointestinal: Normal bowel sounds, Soft and benign Laboratory Data (last 24 hrs) 09/13/22 05:05: WBC 11.60 H, Hgb 13.5 L, Hct 39.1 L, Plt Count 149 L 09/13/22 05:05: Sodium 138, Potassium 3.6, BUN 10, Creatinine 1.02, Glucose 113 H, Total Bilirubin 0.8, AST 19, ALT 30, Alkaline Phosphatase 75 - Problems (1) Pulmonary emboli Current Visit: Yes Status: Acute Plan: Patient is 57 years of age admitted with pulmonary embolism no evidence of DVT sent diagnosis of COVID and travel currently hemodynamically stable vital signs all stable not requiring any oxygen start with Lovenox changed to p.o. Eliquis tomorrow discharge treat with L Eliquis as per protocol for pulmonary embolism total duration 3 months follow-up with me in 2-week Qualifiers: Acute cor pulmonale presence: unspecified
[2022-09-13 10:54] VITALS: BMI 24.3
--- NOTE | 2022-09-13 13:38 | EKG ---
Test Date: 2022-09-13 Test Time: 05:14:12 Longshore Equipment Operator: ARIN MEASUREMENT RESULTS: Intervals: Rate: 68 [place]: 138 QRSD: 86 QT: 390 QTc: 414 [place]: P: 64 [place]: 138 QRS: 76 T: 69 INTERPRETIVE STATEMENTS: Normal sinus rhythm Normal ECG Compared to ECG 03/31/2018 08:35:57 Sinus bradycardia no longer present Electronically Signed On 09-13-22 13:38:00 CDT by Brad Aguirre
--- NOTE | 2022-09-13 13:42 | ECHO ---
HEIGHT: 5 ft 11 in WEIGHT: 174 lb 0.174 oz DATE OF STUDY: 09/13/[address]: Lincoln Peralta MD 2-DIMENSIONAL: YES M.MODE: YES DOPPLER: YES COLOR FLOW: YES TDS: PORTABLE: YES DEFINITY: BUBBLE STUDY: DIAGNOSIS: PULMONARY EMBOLISM CARDIAC HISTORY: CATHERIZATION: SURGERY: PROSTHETIC VALVE: PACEMAKER: MEASUREMENTS (cm) DIASTOLIC (NORMALS) SYSTOLIC (NORMALS) IVSd 0.9 (0.6-1.2) LA Diam 2.9 (1.9-4.0) LVEF 74.% LVIDd 4.1 (3.5-5.7) LVIDs 2.4 (2.0-3.5) %FS 42% LVPWd 1.0 (0.6-1.2) Ao Diam 2.9 (2.0-3.7) 2 DIMENSIONAL ASSESSMENT: RIGHT ATRIUM: NORMAL LEFT ATRIUM: NORMAL RIGHT VENTRICLE: NORMAL LEFT VENTRICLE: NORMAL TRICUSPID VALVE: NORMAL MITRAL VALVE: MILD MITRAL REGURGITATION PULMONIC VALVE: NORAML AORTIC VALVE: NORMAL PERICARDIAL EFFUSION: NONE AORTIC ROOT: NORMAL LEFT VENTRICULAR WALL MOTION: NORMAL DOPPLER/COLOR FLOW: SEE BELOW COMMENTS: 1. NORMAL LEFT VENTRICULAR EJECTION FRACTION 60-65% WITH NORMAL WALL MOTION 2. NORMAL RIGHT VENTRICULAR SIZE AND FUNCTION 3. NORMAL DIASTOLIC FUNCTION 4. MILD MITRAL REGURGITATION TECHNOLOGIST: JANIYA MARTINEZ
--- NOTE | 2022-09-13 17:44 | RAD REPORT ---
EXAM DESCRIPTION: CT CHEST ANGIOGRAPHY WITH IV CONTRAST TECHNIQUE: Computerized tomographic angiography of the chest was performed after the IV injection of iodinated nonionic contrast including image processing. The image data was postprocessed using 2-d imensional multiplanar reformatted (MPR) and 3-dimensional (MIP and/or volume rendered) techniques. A utomated exposure control, adjustment of mA and/or kV according to patient size, or iterative reconst ruction dose optimization techniques were utilized. CLINICAL HISTORY: Chest pain COMPARISON: None. FINDINGS: Heart and pericardium: Normal. Findings are equivocal for right heart strain. There is mil d flattening of the interventricular septum and small amount of contrast refluxed into the inferior v juli cava. Thoracic aorta: Normal. There is incidental note of an abberant right subclavian artery. Pulmonary vasculature: There are linear filling defects compatible with emboli within proximal segmen catherine right middle lobe arterial branches and subsegmental right lower lobe pulmonary arterial branches . Lymph nodes: No enlarged thoracic lymph nodes. Lungs: There are patchy peripheral right lower lobe airspace opacities, concerning for pulmonary in farct. Pleural space: There is a trace amount of right pleural fluid. No pneumothorax. Musculoskeletal structures: No significant abnormality. Upper abdominal structures: No significant abnormality. IMPRESSION: Right middle lobe and right lower lobe pulmonary emboli. Patchy peripheral right lower lobe airspace opacities, likely related to pulmonary infarct given the associated pulmonary emboli. Differential diagnosis would include focal pneumonia. Correlate clinic ally. Findings were discussed with Dr. Chris Richards by telephone at 6:18 AM central standard time on 09/14/19 Electronically signed by: Mary Rojo MD 09/13/2022 6:21 AM CDT Due to temporary technical issues with the PACS/Fluency reporting system, reports are being signed by the in house radiologists without review as a courtesy to insure prompt reporting. The interpreting radiologist is fully responsible for the content of the report.
[2022-09-13] MEDS ORDERED: ENOXAPARIN 80 MG/0.8 ML SQ SCH ×2 (18:00)
[2022-09-14 03:22] LABS: SARS-COV-2 RT PCR POSITIVE (NEGATIVE)
[2022-09-14 04:54] VITALS: O2SAT 94
[2022-09-14 08:14] VITALS: BP 134/80; TEMP 98.2
[2022-09-14] MEDS ORDERED: APIXABAN 5 MG TABLET PO SCH (09:00)
[2022-09-14] MEDS ORDERED: CETIRIZINE HCL 5 MG TABLET PO PRN (09:42)
[2022-09-14] MEDS ORDERED: ROSUVASTATIN 10 MG TAB PO SCH (10:00)
--- NOTE | 2022-09-22 22:29 | P.DS ---
Discharge Date: 09/14/22 Disposition: ROUTINE DISCHARGE Discharge Condition: GOOD Reason for Admission: Pulmonary embolism - Problems (1) Pulmonary emboli Status: Acute Qualifiers: Acute cor pulmonale presence: unspecified Brief History of Present Illness: Patient is a 57-year-old gentleman who came to the hospital with pain on the right upper quadrant of the abdomen and pleuritic pain. Patient recently flew in from [place]. He was there for 3 weeks. The last week he got COVID-19. When he arrived to our hospital he was little short of breath. He decided to come to the emergency room for further evaluation. In the emergency room he was found to have a pulmonary embolism. Diagnosing right heart strain was equivocal. We will go ahead and admit the patient to the hospital and get an echocardiogram and venous Doppler. 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 He can get outpatient testing hypercoagulable work-up if no other studies are diagnostic of etiology of pulmonary embolism. Likely culprit is COVID-19 infection. Hospital Course: Patient presented to the hospital with a diagnosis of pulmonary embolism. Venous Doppler was negative. Patient started on anticoagulation. Patient will need outpatient follow-up with Pulmonary. Dr. Saavedra has seen the patient and recommended 3 months of Eliquis. Patient will discharge with outpatient follow-up as mentioned above. Vital Signs/Physical Exam: Temp Pulse Resp BP Pulse Ox 98.2 F 65 16 134/80 97 09/14/22 08:00 09/14/22 08:00 09/14/22 08:00 09/14/22 08:00 09/14/22 08:00 General: Alert, In no apparent distress, Oriented x3 Laboratory Data at Discharge: WBC 11.60 thou/uL (4.3-10.9) H 09/13/22 05:05 Hgb 13.5 g/dL (13.6-17.9) L 09/13/22 05:05 Hct 39.1 % (39.6-49.0) L 09/13/22 05:05 Plt Count 149 thou/uL (152-406) L 09/13/22 05:05 Sodium 138 mEq/L (136-145) 09/13/22 05:05 Potassium 3.6 mEq/L (3.5-5.1) 09/13/22 05:05 BUN 10 mg/dL (7-18) 09/13/22 05:05 Creatinine 1.02 mg/dL (0.70-1.30) 09/13/22 05:05 Glucose 113 mg/dL (74-106) H 09/13/22 05:05 Total Bilirubin 0.8 mg/dL (0.2-1.0) 09/13/22 05:05 AST 19 U/L (15-37) 09/13/22 05:05 ALT 30 U/L (16-61) 09/13/22 05:05 Alkaline Phosphatase 75 U/L (45-117) 09/13/22 05:05 Home Medications: Apixaban [Eliquis] 5 mg PO BID 30 Days #60 tab 09/13/22 Apixaban [Eliquis] 10 mg PO BID 7 Days #28 tab 09/13/22 Rosuvastatin [Crestor*] 5 mg PO SEECOM 09/13/22 Hydrocodone 5/APAP 325 [[place] 5/325*] 1 tab PO Q6HP PRN #30 tab 09/14/22 New Medications: Apixaban [Eliquis] 10 mg PO BID 7 Days #28 tab Apixaban [Eliquis] 5 mg PO BID 30 Days #60 tab Hydrocodone 5/APAP 325 [[place] 5/325*] 1 tab PO Q6HP PRN #30 tab PRN Reason: Pain Scale 5-7 (Moderate) Physician Discharge Instructions: -DC IV and DC home -Follow-up with PCP in 1 to 2 weeks -Follow-up with pulmonary in 1 to 2 weeks -Please call Dr. Peralta at [phone] if any questions regarding hospital stay -Please call nursing station at [phone] if any nursing or medication questions -Return to the emergency room if symptoms worsen Diet: AHA Activity: Fall precautions Followup: NONE,NONE [Primary Care Provider] - Time spent managing pt's care (in minutes): 35
== END 2022-09-14 11:26 | disposition home or self-care (01) ==
LOC: ER 03:59 → ERHOLD 07:16 → 4TH 10:03
PROVIDERS: ADMIT Hospitalist; ATTEND Hospitalist
DX: I26.99 Other pulmonary embolism without acute cor pulmonale (principal); U07.1 COVID-19; E78.5 Hyperlipidemia, unspecified; F41.9 Anxiety disorder, unspecified
CPT/HCPCS: 93005; 93306; 85025; 80048; 36415; 80076; 84484; 83880; 0240U; 71275; 93970; 96372; 99285; Q9967; G0378 ×4